=== PATIENT | male | born 1945 | race Caucasian/White ===

== ENCOUNTER 2016-08-06 16:21 | Emergency (ER) | payer MEDICARE ==
[2015-09-21 12:51] VITALS: BMI 28.2
[~2016-08-06 16:21] MED LIST: BAYER CHEWABLE81 MG PO; BUSPAR10 MG PO; CARAFATE1 G PO; CLARITIN 10 MG10 MG PO; CYMBALTA30 MG PO; DESERYL100 MG PO; EFFEXOR XR75 MG PO; FLOMAX0.4 MG PO; FLUNISOLIDE29 MCG NASAL; FLUTICASONE PRO16 GM NASAL; LANTUS INSULIN10 ML SC; MORPHINE SULFAT30 M4 PO; NEURONTIN 400400 MG PO; PHENERGAN25 M1 PO; PLAVIX75 MG PO; PROSCAR5 MG PO; PROTONIX40 MG PO; ZANAFLEX4 MG PO; ZOCOR80 MG PO
[2016-08-06 17:04] LABS: BASOPHILS 0.2 % (0.0-2.0); EOSINOPHILS 1.6 % (0-7); HEMATOCRIT 31.9 % (42.0-54.0); HEMOGLOBIN 10.8 g/dL (13.5-17.5); IMMATURE GRANULOCYTES 0.5 % (0-5); LYMPHOCYTES 23.9 % (15-50); MCH 30.4 pg (26.0-34.0); MCHC 33.9 g/dL (31.0-37.0); MCV 89.9 fL (80.0-100.0); MEAN PLATELET VOLUME 9.9 fL (7.4-10.4); NEUTROPHILS 62.8 % (40-80); RBC 3.55 10x6/uL (4.20-6.10); RDW 15.1 % (11.5-14.5); WBC 6.4 10x3/uL (4.8-10.8)
[2016-08-06 17:05] LABS: PLATELET COUNT 149 10x3/uL (130-400)
[2016-08-06 17:24] LABS: ALBUMIN 3.3 g/dL (3.4-5.0); ANION GAP 7.8 mmol/L (8-16); BILIRUBIN - TOTAL 0.55 mg/dL (0.2-1.3); CALCIUM 8.8 mg/dL (8.5-10.1); CARBON DIOXIDE 36.2 mmol/L (21.0-32.0); CREATININE - SERUM 1.6 mg/dL (0.6-1.3); PROTEIN - SERUM 7.3 g/dL (6.4-8.2)
[2016-08-06 17:36] LABS: THYROID STIMULATING HORMONE 1.23 uIU/mL (0.36-3.74); TROPONIN-I 0.02 ng/mL (0.000-0.060)
[2016-08-06 17:36] LABS: APPEARANCE CLEAR (CLEAR); BILIRUBIN NEGATIVE (NEGATIVE); COLOR YELLOW (YELLOW); GLUCOSE NEGATIVE (NEGATIVE); KETONE NEGATIVE (NEGATIVE); LEUKOCYTE ESTERASE TRACE (NEGATIVE); NITRITE NEGATIVE (NEGATIVE); PROTEIN NEGATIVE (NEGATIVE); SPECIFIC GRAVITY 1.005 (1.005-1.020); UROBILINOGEN NORMAL (NORMAL)
[2016-08-06 17:37] LABS: BACTERIA NONE SEEN /hpf (NONE SEEN); EPITHELIAL CELLS 0-5 /hpf (0-5); RED CELLS - URINE 0-5 /hpf (0-5); WHITE CELLS - URINE 0-5 /hpf (0-5)
== END 2016-08-06 20:27 | disposition home or self-care (01) ==
LOC: D.ER 16:21
PROVIDERS: Emergency Medicine
DX: R42 Dizziness and giddiness (principal); Z91.81 History of falling; S09.90XA Unspecified injury of head, initial encounter; W19.XXXA Unspecified fall, initial encounter; Y93.89 Activity, other specified; Y92.89 Other specified places as the place of occurrence of the external cause; S13.9XXA Sprain of joints and ligaments of unspecified parts of neck, initial encounter; E86.0 Dehydration; E87.6 Hypokalemia; R53.1 Weakness; G89.29 Other chronic pain; E11.9 Type 2 diabetes mellitus without complications; Z95.0 Presence of cardiac pacemaker; I10 Essential (primary) hypertension; I45.10 Unspecified right bundle-branch block

== ENCOUNTER → 2016-12-08 11:46 | Outpatient (CLI) | payer MEDICARE ==
[2015-09-21 12:51] VITALS: BMI 28.2
== END | disposition home or self-care (01) ==
LOC: D.CT 11:46
DX: R42 Dizziness and giddiness (principal)

== ENCOUNTER 2016-12-13 16:26 | Inpatient (IN) | payer MEDICARE ==
[~2016-12-13] VITALS: Ht 167.6 cm; Wt 81.1 kg
--- NOTE | ~2016-12-13 | HP ---
PATIENT: WASHINGTON HU MEDICAL RECORD: [id number] ACCOUNT: [id number] LOCATION:[address] : [birth year] ADMISSION DATE: 12/13/16 HISTORY AND PHYSICAL EXAMINATION CHIEF COMPLAINT: Dizziness. HISTORY OF PRESENT ILLNESS: An elderly [facility] patient of mine presented to clinic yesterday with complaint of dizziness and back pain. The patient states he is dizzy all the time, has been falling recently, very weak. He had some lab work drawn yesterday. It came back today and showed potassium of 2.4 with acute renal insufficiency, so he will be admitted for further workup. PAST MEDICAL HISTORY, SOCIAL HISTORY, SURGICAL HISTORY, FAMILY HISTORY: See paper chart. REVIEW OF SYSTEMS: CONSTITUTIONAL: No fever or chills. Positive for generalized weakness. HEENT: He does have some nasal congestion. RESPIRATORY: Positive for chronic cough and shortness of breath. CARDIOVASCULAR: No chest pain. ABDOMEN: No abdominal pain. No nausea, vomiting or diarrhea. GENITOURINARY: No dysuria. Does complain of polyuria. MUSCULOSKELETAL: Positive for back pain. NEUROLOGIC: Positive for dizziness. PHYSICAL EXAMINATION: GENERAL: No acute distress. HEENT: Normocephalic, atraumatic. NECK: Supple. LUNGS: Clear to auscultation bilaterally. CARDIOVASCULAR: Regular rate and rhythm. A III/ systolic ejection murmur. ABDOMEN: Soft, nontender to palpation. Bowel sounds positive. MUSCULOSKELETAL: Positive for back flexion and extension. EXTREMITIES: Trace edema. NEUROLOGIC: Awake, alert, oriented times 3. Cranial nerves II-XII grossly intact. ASSESSMENT: 1. Hypokalemia. 2. Acute kidney injury. 3. Sick sinus syndrome. 4. Insulin-dependent diabetes. 5. Dizziness. PLAN: We will admit the patient to the hospital, start on electrolyte protocol with fluid replacement. Check carotid Dopplers, may need pacemaker interrogated while in the hospital. Other orders written on chart. TRANSINT:[id number] Voice Confirmation ID: [id number] DOCUMENT ID: [id number] HISTORY AND PHYSICAL [id number] WASHINGTON HU HUNTER MD CC: [id number] DICTATION DATE: 12/13/161734 METEOROLOGIST IN CHARGE: 12/13/16 1828 ADM IN [id number] [place] [address]
--- NOTE | ~2016-12-13 | EC ---
PATIENT:WASHINGTON HU DATE OF SERVICE: 12/14/16 SEX: M MEDICAL RECORD: [id number] DATE OF : 47 LOCATION:D.M2 D.210 AGE OF PATIENT: 71 ADMISSION DATE: 12/14/16 REFERRING PHYSICIAN: INTERPRETING PHYSICIAN: KIMBERLY ESTEVES M.D. ECHOCARDIOGRAM REPORT ECHO CHARGES 4 ECHO COMPLETE CLINICAL DIAGNOSIS: NEAR SYNCOPE HX HTN/DM ECHOCARDIOGRAPHIC MEASUREMENTS (adult normal given) AC root (d.<3.7cm) 3.3 LV Septum d (<1.2 cm> 1.4 Valve Excursion 1.5 LV Septum (systole) 1.7 Left Atria (s.<4.0cm> 4.2 LVPW d(<1.2cm) 1.3 RV (d.<2.3cm) 3.4 LVPW (sytole) 1.9 LV diastole(<5.6CM) 5.2 MV E-F(>70mm/sec) LV systole 3.1 LVOT Diameter 1.7 MV exc.(>10mm) 1.3 Est.ejection fraction (50-75%) Pericardial Effusion N DOPPLER: LVIT A 85.0 E 107 LA RVSP 66 LVOT 114 AOP1/2T Asc. Ao 135 RVOT 87 RA PA 105 AV Gradient Peak 7.25 AV Mean 3.20 AV Area 1.6 MV Gradient Peak 5.72 MV Mean 2.50 MV Area COMMENTS: Lead Network Architect: Vaughn RAI Dust Operator:2 Dr. Esteves TAPE# PACS DATE OF SERVICE: 12/14/2016 INDICATION: Near syncope. REFERRING PHYSICIAN: Sidney Wang MD. DESCRIPTION: Left ventricle demonstrates left ventricular hypertrophy. No wall motion abnormalities are noted. Estimated ejection fraction is 65%. Mitral valve is structurally normal. There is mild regurgitation seen. Left atrium is mildly dilated. The aortic valve is trileaflet. There is mild insufficiency ECHOCARDIOGRAM REPORT [id number] WASHINGTON HU seen, but no evidence of stenosis. Right ventricle is mildly dilated. Tricuspid valve is normal. There is moderate regurgitation noted. Right ventricular systolic pressure is elevated at 66 mmHg. There is no pericardial effusion noted. IMPRESSION: 1. Left ventricular hypertrophy with preserved ejection fraction of 55%. 2. Mild mitral regurgitation. 3. Mild aortic insufficiency. 4. Moderate tricuspid regurgitation with elevated pulmonary pressures. TRANSINT:[id number] Voice Confirmation ID: [id number] DOCUMENT ID: [id number] KIMBERLY ESTEVES M.D. CC: [id number] DICTATION DATE: 12/15/16 0758 HVAC TECH: 12/15/16 1522 ADM IN [facility] [address] [id number]
[2016-12-13 17:56] LABS: BASOPHILS 0.2 % (0-2); EOSINOPHILS 1.8 % (0-7); HEMATOCRIT 33.5 % (42.0-54.0); HEMOGLOBIN 11.3 g/dL (13.5-17.5); LYMPHOCYTES 19.7 % (15-50); MCH 31.9 pg (26.0-34.0); MCHC 33.7 g/dL (31.0-37.0); MCV 94.6 fL (80.0-100.0); MEAN PLATELET VOLUME 9.3 fL (7.4-10.4); MONOCYTES 15.3 % (2-11); PLATELET COUNT 169 10x3/uL (130-400); RBC 3.54 10x6/uL (4.20-6.10); RDW 13.7 % (11.5-14.5); WBC 5.4 10x3/uL (4.8-10.8)
[2016-12-13 18:03] VITALS: BP 181/82; BMI 27.8
[2016-12-13 18:24] LABS: ALBUMIN 3.3 g/dL (3.4-5.0); ANION GAP 6.9 mmol/L (8-16); BILIRUBIN - TOTAL 0.71 mg/dL (0.2-1.3); CALCIUM 8.9 mg/dL (8.5-10.1); CARBON DIOXIDE 38.5 mmol/L (21.0-32.0); CREATININE - SERUM 1.5 mg/dL (0.6-1.3); PROTEIN - SERUM 8.2 g/dL (6.4-8.2)
[2016-12-13 18:41] LABS: POTASSIUM - SERUM 2.4 mmol/L (3.5-5.1)
--- NOTE | 2016-12-13 21:31 | NUR ---
PT AWAKE, ALERT, ORIENTED, STATED HE FELL THIS AM AND WILL CALL WITH NEEDING ANY ASSISTANCE. PTS FSBS IS 408 THIS EVENING. WILL HAVE LAB DRAW A SERUM GLUCOSE AND CALL PHYSICIAN FOR FURTHER ORDERS. PT STATES HE GLUCOSE HAS NEVER BEEN THIS HIGH AND HE ONLY TAKES LANTUS. WILL ADMINISTER THE 20UNITS OF LANTUS AND WAIT FOR FURTHER ORDERS. CONTINUE TO MONITOR PT CLOSELY.
--- NOTE | 2016-12-14 03:34 | NUR ---
PT CALLED C/O NASAL DRYNESS, REQUESTING HIS NOSE SPRAY. UPON FURTHER INVESTIGATION, THERE IS NO NASAL SPRAY ORDERED FOR PT. WHEN ASKED IF PT TAKES NASAL SPRAY, HE STATED THAT HE HAS AN RX FROM THE SD THAT HE TAKES AND NEEDS IT NOW. I EXPLAINED TO PT THAT WE HAVE TO HAVE A PHYSICIAN ORDER IT, AND THAT IT WOULD BE DONE UPON THEIR APPROVAL IN THE A.M. DURING THEIR ROUNDS. PT DENIED ANY OTHER NEEDS. CONTINUE TO MONITOR CLOSELY.
[2016-12-14 05:12] LABS: BASOPHILS 0.4 % (0-2); EOSINOPHILS 1.7 % (0-7); HEMATOCRIT 30.3 % (42.0-54.0); HEMOGLOBIN 10.3 g/dL (13.5-17.5); IMMATURE GRANULOCYTES 0.2 % (0-5); LYMPHOCYTES 40.2 % (15-50); MCH 32.1 pg (26.0-34.0); MCV 94.4 fL (80.0-100.0); MEAN PLATELET VOLUME 9.5 fL (7.4-10.4); MONOCYTES 14.4 % (2-11); NEUTROPHILS 43.1 % (40-80); PLATELET COUNT 160 10x3/uL (130-400); RBC 3.21 10x6/uL (4.20-6.10); RDW 13.7 % (11.5-14.5); WBC 4.7 10x3/uL (4.8-10.8)
[2016-12-14 05:38] LABS: ALBUMIN 2.8 g/dL (3.4-5.0); BILIRUBIN - TOTAL 0.66 mg/dL (0.2-1.3); CALCIUM 8.5 mg/dL (8.5-10.1); CARBON DIOXIDE 37.1 mmol/L (21.0-32.0); CREATININE - SERUM 1.4 mg/dL (0.6-1.3)
[2016-12-14 05:47] LABS: ANION GAP 8.3 mmol/L (8-16); POTASSIUM - SERUM 2.4 mmol/L (3.5-5.1)
[2016-12-14 07:00] VITALS: BP 144/60
[2016-12-14 07:17] LABS: APPEARANCE CLEAR (CLEAR); BILIRUBIN NEGATIVE (NEGATIVE); COLOR YELLOW (YELLOW); GLUCOSE NEGATIVE (NEGATIVE); KETONE NEGATIVE (NEGATIVE); LEUKOCYTE ESTERASE TRACE (NEGATIVE); NITRITE NEGATIVE (NEGATIVE); PROTEIN NEGATIVE (NEGATIVE); RED CELLS - URINE 0-5 /hpf (0-5); UROBILINOGEN NORMAL (NORMAL); WHITE CELLS - URINE OCC /hpf (0-5)
[2016-12-14 07:18] LABS: BACTERIA FEW /hpf (NONE SEEN); MUCUS <1+ /lpf (NONE SEEN)
--- NOTE | 2016-12-14 07:45 | NUR ---
AM ROUNDS - PT IS IN BED AND AWAKE. C/O PAIN IN BUTTOCK, 02/15. IV TO LEFT AC, NS WITH 20K+ AT 75CC/HR. PT HAS NO NEEDS AT THIS TIME. WILL CONTINUE TO MONITOR.
[2016-12-14 11:00] VITALS: BP 130/860
[2016-12-14 12:34] VITALS: Ht 167.6 cm; Wt 81.1 kg
--- NOTE | 2016-12-14 14:47 | NUR ---
SCDS TO BLE PLACE ON
[2016-12-14 16:17] VITALS: BP 100/67
[2016-12-14 17:24] LABS: MAGNESIUM - SERUM 1.9 mg/dL (1.8-2.4)
[2016-12-14 17:26] LABS: POTASSIUM - SERUM 3.6 mmol/L (3.5-5.1)
--- NOTE | 2016-12-14 18:29 | NUR ---
PT IS IN BED AWAKE AND ALERT. IV TO LEFT AC, NS WITH 20K AT 75CC/HR. NO NEEDS AT THIS TIME. WILL CONTINUE TO MONITOR
[2016-12-14 20:00] VITALS: BP 145/58
--- NOTE | 2016-12-14 20:02 | NUR ---
PT SITTING UP IN CHAIR, AWAKE, ALERT, ORIENTED, DENIES ANY NEEDS. CONTINUE TO MONITOR CLOSELY.
--- NOTE | 2016-12-15 00:44 | NUR ---
PT AWAKE, ALERT, ORIENTED, DENIES ANY NEEDS. CONTINUE TO MONITOR CLOSELY. PT IS NOW NPO SINCE MIDNIGHT FOR UPCOMING PROCEDURE.
[2016-12-15 04:00] VITALS: BP 166/77
--- NOTE | 2016-12-15 04:08 | NUR ---
PT WOKE UP REQUESTING HIS MORPHINE, STATING THAT HE DID NOT RECEIVE IT THIS SHIFT. I REMINDED PT THAT I DID INDEED GIVE HIM HIS MORPHINE, AND ACTUALLY PLACED IT IN HIS MOUTH FOR ADMINISTRATION. HE ARGUED WITH ME THAT HE DID NOT RECEIVE IT, AND IS DEMANDING THAT I GIVE IT TO HIM NOW. I EXPLAINED TO PT THAT HE WAS SLEEPING WHEN I CAME IN TO ADMINISTER THE 22:00 SCHEDULED DOSE OF MS CONTIN, THAT I PLACED THE MEDICINE CUP WITH THE 1 30MG MS CONTIN IN IT TO HIS LIPS, TURNING IT OVER INTO HIS MOUTH. I ALSO ASSISTED PT WITH A DRINK OF WATER SO THAT HE COULD SWALLOW HIS PILL. I EXPLAINED THAT HIS MS CONTIN IS SCHEDULED EVERY 8 HOURS AND THAT I CANNOT GIVE HIM ANOTHER ONE UNTIL 06:00 BUT THAT HE CAN HAVE A TYLENOL. HE THEN ARGUED WITH ME ABOUT TYLENOL, STATING HE CANNOT TAKE ASPIRIN. I TOLD HIM TYLENOL WAS NOT ASPIRIN, THAT IT WAS ACETOMINPHEN. PT THEN ASKED FOR IBUPROFEN, IN WHICH I TOLD HIM AGAIN THAT HE CAN HAVE A TYLENOL. I TOLD PT THAT I DID NOT APPRECIATE BEING ACCUSED OF NOT GIVING HIM HIS MORPHINE, AND THAT FROM THIS POINT FORWARD, I WILL MAKE SURE PT IS COMPLETELY AWAKE BEFORE DOING SO.
[2016-12-15 06:00] LABS: BASOPHILS 0.2 % (0-2); EOSINOPHILS 1.7 % (0-7); HEMATOCRIT 29.3 % (42.0-54.0); HEMOGLOBIN 9.7 g/dL (13.5-17.5); IMMATURE GRANULOCYTES 0.2 % (0-5); LYMPHOCYTES 34.8 % (15-50); MCH 31.8 pg (26.0-34.0); MCHC 33.1 g/dL (31.0-37.0); MCV 96.1 fL (80.0-100.0); MEAN PLATELET VOLUME 9.7 fL (7.4-10.4); MONOCYTES 15.7 % (2-11); NEUTROPHILS 47.4 % (40-80); PLATELET COUNT 147 10x3/uL (130-400); RBC 3.05 10x6/uL (4.20-6.10); RDW 13.9 % (11.5-14.5); WBC 4.1 10x3/uL (4.8-10.8)
--- NOTE | 2016-12-15 06:11 | NUR ---
UPON ADMINISTERING PTS 06:00 MEDS THIS A.M., I MADE SURE THAT PT WAS FULLY AWAKE, ALERT, AND ORIENTED. I ASKED PT IF HE WOULD REMEMBER ME GIVING HIM HIS SCHEDULED MS CONTIN THIS AM AND HE STATED "YES" THAT HE WILL REMEMBER TAKING IT THIS AM. ALSO GAVE PT HIS PRN ZANAFLEX. PT STATES HIS BACK/BUTTOCK PAIN IS INTRACTABLE AT THIS TIME AND HE IS NOT GETTING RELIEF FROM HIS SCHEDULED PAIN MEDICATION. CONTINUE TO MONITOR.
[2016-12-15 06:53] LABS: ANION GAP 10.3 mmol/L (8-16); CALCIUM 8.3 mg/dL (8.5-10.1); CARBON DIOXIDE 30.3 mmol/L (21.0-32.0); CREATININE - SERUM 1.3 mg/dL (0.6-1.3); MAGNESIUM - SERUM 1.9 mg/dL (1.8-2.4); POTASSIUM - SERUM 3.6 mmol/L (3.5-5.1)
--- NOTE | 2016-12-15 07:31 | NUR ---
AM ROUNDS - PT APPEARS TO BE SLEEPING WITH EQUAL AND NON LABORED BREATHING, IN BED. IV TO LEFT AC, NS WITH 20K+ @ 75CC/HR. SIDE RAILS UP X2. BED AT LOWEST POSITION. URINAL AND CANE AT BEDSIDE. CALL PEDRAZA IN REACH. SCDS ARE CURRENTLY OFF. PT IS NPO AT THIS TIME FOR A PROCEDURE TODAY. PT IS ON RA. MONITOR SHOWING PACE, HR 67. WILL CONTINUE TO MONITOR
[2016-12-15 08:00] VITALS: BP 101/56
[2016-12-15 12:00] VITALS: BP 143/76
--- NOTE | 2016-12-15 12:15 | NUR ---
PT RETURNED FROM PROCEDURE
[2016-12-15 16:00] VITALS: BP 186/72
--- NOTE | 2016-12-15 18:17 | NUR ---
PT IN BED RESTING WITH AT BEDSIDE. NO NEEDS AT THIS TIME. WILL CONTINUE TO MONITOR
--- NOTE | 2016-12-15 20:10 | NUR ---
PT AWAKE AND ALERT, SIT UP IN BED AND WATCH TV.
[2016-12-16] VITALS (7 sets, daily range): BP systolic 110–156; BP diastolic 58–72
--- NOTE | 2016-12-16 01:07 | NUR ---
PT REST QUIETLY IN BED WITH EYE CLOSE, BED LOW, CALL LIGHT WITHIN REACH.
--- NOTE | 2016-12-16 06:05 | NUR ---
PT LYING IN BED, EYES CLOSED, RESPIRATIONS EVEN AND UNLABORED. CONTINUE TO MONITOR CLOSELY.
[2016-12-16 08:48] LABS: BASOPHILS 0.2 % (0-2); EOSINOPHILS 2.9 % (0-7); HEMATOCRIT 31.4 % (42.0-54.0); HEMOGLOBIN 10.2 g/dL (13.5-17.5); IMMATURE GRANULOCYTES 0.2 % (0-5); LYMPHOCYTES 30.7 % (15-50); MCH 31.9 pg (26.0-34.0); MCHC 32.5 g/dL (31.0-37.0); MEAN PLATELET VOLUME 9.6 fL (7.4-10.4); MONOCYTES 9.2 % (2-11); NEUTROPHILS 56.8 % (40-80); PLATELET COUNT 164 10x3/uL (130-400); RDW 14.4 % (11.5-14.5)
[2016-12-16 08:54] LABS: MCV 98.1 fL (80.0-100.0); WBC 6.1 10x3/uL (4.8-10.8)
[2016-12-16 08:55] LABS: ANION GAP 8.9 mmol/L (8-16); CALCIUM 8.5 mg/dL (8.5-10.1); CARBON DIOXIDE 30.5 mmol/L (21.0-32.0); CREATININE - SERUM 1.3 mg/dL (0.6-1.3); MAGNESIUM - SERUM 1.6 mg/dL (1.8-2.4)
[2016-12-16 08:56] LABS: POTASSIUM - SERUM 4.4 mmol/L (3.5-5.1)
--- NOTE | 2016-12-16 09:10 | NUR ---
AWAKE AND ALERT. ORIENTED X3. NO C/O AT THIS TIME. LUNGS ARE CLEAR BILATERALLY, NO COUGH NOTED. SKIN IS INTACT WITHOUT REDNESS. IV TO RIGHT WRIST PATENT WITHOUT REDNESS AT INSERTION SITE. ATE MOST OF BREAKFAST. DENIES NEEDS. ASSISTED TO BED PER STAFF.
--- NOTE | 2016-12-16 10:00 | CN ---
PATIENT NAME:WASHINGTON HU MEDICAL RECORD: [id number] : 47 LOCATION:D.M2 D.2107 ADMIT DATE: 12/14/16 ACCOUNT: [id number] CONSULTING PHYSICIAN: SAL BENITEZ MD REFERRING PHYSICIAN: AXEL ELIZABETH MD DATE OF CONSULTATION: 12/14/2016 HISTORY OF PRESENT ILLNESS: A 71-year-old gentleman with a history of sick sinus syndrome, status post pacemaker placement, [place], has a history of diabetes mellitus, hypertension, hyperlipidemia, admitted with syncope; however, noted to be hypokalemic. He reports some weakness, occasional syncope with urination, he feels like his legs are going out, has moderate stenosis via carotid Doppler. Echocardiographic study is pending. We are asked to see her concerning her cardiovascular status. PAST MEDICAL HISTORY: Includes: 1. History of hypertension. 2. Diabetes mellitus. 3. Dyslipidemia. 4. Chronic pain syndrome. 5. Gastroesophageal reflux disease. 6. BPH. HOME MEDICATIONS: Include Proscar 5 mg p.o. daily, insulin, Carafate 1 g a.c. and q.h.s., Protonix 40 mg q.h.s., BuSpar 10 mg p.o. t.i.d., trazodone ____ mg p.o. q.h.s., Effexor 75 mg daily, morphine 30 mg t.i.d., Neurontin 400 mg t.i.d., Cymbalta 30 mg p.o. daily, aspirin 81 mg daily, simvastatin 80 mg q.h.s., Plavix 75 mg daily, Zanaflex 4 mg q.6 hours p.r.n., Phenergan as needed. SOCIAL HISTORY: She is a nonsmoker, lives here in [place]. No set of exercise program. He is able to take care of his ADLs. REVIEW OF SYSTEMS: The patient reports easy bruising but reports no swollen glands. The patient reports no fever, no night sweats, no significant weight gain, no significant weight loss. No significant exercise tolerance. The patient reports no dry eyes, no irritation, no vision change. Patient reports no difficulty hearing and no ear pain. Patient reports no frequent nose bleeds or nose and sinus problems. Patient reports on arm pain on exertion. No shortness of breath while lying down. No history of heart murmur. Patient reports no cough, no wheezing or coughing up blood. Patient reports no abdominal pain, no vomiting. Normal appetite. No diarrhea and not vomiting blood. No nausea and no constipation. Patient reports no incontinence. No difficulty urinating. No hematuria. No increased frequency. Patient reports no muscle aches. No weakness, no arthralgias, no back pain. No swelling of the extremities. Patient reports no abnormal mole, no jaundice, no rashes. Reports no loss of consciousness. No weakness and no numbness. No seizures, dizziness, or headaches. The patient reports no depression, no sleep disturbance, feeling safe in a relationship and no alcohol abuse. Patient reports on fatigue. Reports no runny nose or sinus pressure. No itching, no hives, and no frequent sneezing. ALLERGIES: NEOSPORIN. PHYSICAL EXAMINATION: GENERAL: Pleasant gentleman in no acute distress, appears stated age. CONSULT REPORT [id number] WASHINGTON HU VITAL SIGNS: Blood pressure 181/82. Pulse 65 and regular. HEENT: Normocephalic and atraumatic. NECK: No JVD or bruit. HEART: Regular, soft, I-II/ systolic ejection murmur. LUNGS: Good air excursion. ABDOMEN: Soft and nontender. EXTREMITIES: Pulses 2+ with no edema. NEUROLOGICAL: Grossly intact. IMPRESSION: Syncope, near syncope, multifactorial, may be a component of autonomic insufficiency with longstanding diabetes. Pacemaker was interrogated with excellent threshold sensing, no arrhythmias noted on heart rate histograms, I agree with other workup. Thank you for the consultation. No contraindication at discharge from a cardiovascular standpoint. TRANSINT:[id number] Voice Confirmation ID: [id number] DOCUMENT ID: [id number] SAL BENITEZ MD at 1000 CC: [id number] DICTATION DATE: 12/14/16 1451 DUMPCART DRIVER: 12/15/16 0114 ADM IN [place] [id number] [place] [address]
--- NOTE | 2016-12-16 11:30 | NUR ---
fsbs 184. GIVEN 2 UNITS HUMALOG SUBQ PER SS. PATIENT IS NPO AT THIS TIME FOR TEST. /FAMILY IN ROOM.
--- NOTE | 2016-12-16 13:14 | NUR ---
RESTING QUIETLY IN BED. WAITING ANXIOUSLY FOR TEST TO BE OVER SO HE CAN EAT AND DRINK.
--- NOTE | 2016-12-16 14:00 | NUR ---
OFF UNIT VIA FOR TESTS.
--- NOTE | 2016-12-16 15:15 | NUR ---
RETURNED FROM PROCEDURE. REQUESTED AND GIVEN ZANAFLEX FOR MUSCLE CRAMPS. WILL MONITOR.
--- NOTE | 2016-12-16 17:00 | NUR ---
FSBS 180. GIVEN 2 UNITS HUMALOG SUBQ PER SS. SUPPER SERVED IN ROOM. ASSISTED TO CHAIR AT BEDSIDE TO EAT. NO CHANGES NOTED DENIES NEEDS.
--- NOTE | 2016-12-16 18:05 | NUR ---
GIVING SELF BATH WHILE UP IN CHAIR. DENIES NEEDS. NO CHANGES NOTED.
--- NOTE | 2016-12-16 20:15 | NUR ---
REC'D IN BED WITH EYES CLOSED EASILY TO AROUSED WHEN NAME IS CALLED. RESP EVEN AND UNLABORED WITH NO DISTRESS NOTED. CAN EXPRESS NEEDS AND WANTS. C/O BACK AND LEG PAIN RATING 10/10 ON PAIN SCALE. WILL CONINTUE TO OBSERVE FOR NEEDS. C/L IN REACH AT BEDSIDE.
[2016-12-17] VITALS: BP 157/69
[2016-12-17 04:00] VITALS: BP 160/57
--- NOTE | 2016-12-17 04:14 | NUR ---
RESTING WITH NO DISTRESS. CPOC.
--- NOTE | 2016-12-17 05:16 | NUR ---
SALINE LOCK WAS DISCONTINUE TO LEFT WRIST PER PT REQUEST. PT STATED THAT " EITHER YOU MOVE IT OR I WILL. THIS IS SORE AND HURTING ME.
[2016-12-17 05:19] LABS: BASOPHILS 0.2 % (0-2); EOSINOPHILS 3.3 % (0-7); HEMATOCRIT 30.9 % (42.0-54.0); HEMOGLOBIN 10.3 g/dL (13.5-17.5); IMMATURE GRANULOCYTES 0.2 % (0-5); LYMPHOCYTES 34.5 % (15-50); MCH 32.4 pg (26.0-34.0); MCHC 33.3 g/dL (31.0-37.0); MCV 97.2 fL (80.0-100.0); MEAN PLATELET VOLUME 9.9 fL (7.4-10.4); MONOCYTES 10.4 % (2-11); NEUTROPHILS 51.4 % (40-80); PLATELET COUNT 158 10x3/uL (130-400); RBC 3.18 10x6/uL (4.20-6.10); RDW 14.2 % (11.5-14.5); WBC 5.1 10x3/uL (4.8-10.8)
[2016-12-17 05:29] LABS: CALCIUM 8.5 mg/dL (8.5-10.1); CARBON DIOXIDE 29.7 mmol/L (21.0-32.0); CREATININE - SERUM 1.3 mg/dL (0.6-1.3); MAGNESIUM - SERUM 1.8 mg/dL (1.8-2.4); POTASSIUM - SERUM 4.7 mmol/L (3.5-5.1)
[2016-12-17 07:00] VITALS: BP 186/90
[2016-12-17 08:00] VITALS: BP 143/78; BP 168/82; BP 186/90
--- NOTE | 2016-12-17 10:11 | NUR ---
ALERT AND ORIENTED X4. SITTING UP IN CHAIR. DENIES PAIN OR SOB. ORTHOSTATIC BP COMPLETE. LYING BP-168/82, P-73. SITTING BP-186/90, P-73. STANDING BP-143/78, P-74. DENIES ANY NEEDS. SINUS RHTHYM WITH PACED BEATS ON TELEMETRY. CONTINUE PLAN OF CARE AND SAFETY PRECAUTIONS.
[2016-12-17 11:37] VITALS: BP 143/78
--- NOTE | 2016-12-17 16:15 | NUR ---
ALERT AND ORIENTED X4. DISCHARGE INSTRUCTIONS GIVEN VERBALLY AND WRITTEN. NO NEW MEDICATIONS. SISTER AT BEDSIDE TO DRIVE HOME. DISCHARGE PAPERS SIGNED ON CHART. DC RT FA IV TIP INTACT. ESCORT TO CAR VIA WHEELCHAIR. REMAINS FREE FROM INJURY.
== END 2016-12-17 16:17 | disposition home or self-care (01) | DRG 74 ==
LOC: D.M2 16:26 → OBSVTIME 16:27 → D.M2 12-14 11:57
PROVIDERS: Family Medicine; ADMIT Family Medicine
DX: E11.43 Type 2 diabetes mellitus with diabetic autonomic (poly)neuropathy (principal); N17.9 Acute kidney failure, unspecified; I65.23 Occlusion and stenosis of bilateral carotid arteries; E87.6 Hypokalemia; E78.5 Hyperlipidemia, unspecified; E11.22 Type 2 diabetes mellitus with diabetic chronic kidney disease; I12.9 Hypertensive chronic kidney disease with stage 1 through stage 4 chronic kidney disease, or unspecified chronic kidney disease; N18.3 Chronic kidney disease, stage 3 (moderate); N40.0 Benign prostatic hyperplasia without lower urinary tract symptoms; J44.9 Chronic obstructive pulmonary disease, unspecified; E11.42 Type 2 diabetes mellitus with diabetic polyneuropathy; Z79.4 Long term (current) use of insulin; K31.84 Gastroparesis; I95.9 Hypotension, unspecified; K21.9 Gastro-esophageal reflux disease without esophagitis; Z95.0 Presence of cardiac pacemaker; Z72.0 Tobacco use

== ENCOUNTER 2017-01-05 20:07 | Emergency (ER) | payer MEDICARE ==
[2016-12-14 12:34] VITALS: BMI 27.7
[2017-01-05 21:44] LABS: BASOPHILS 0.1 % (0-2); HEMATOCRIT 32.4 % (42.0-54.0); IMMATURE GRANULOCYTES 0.4 % (0-5); LYMPHOCYTES 28.1 % (15-50); MCH 31.8 pg (26.0-34.0); MCV 93.6 fL (80.0-100.0); MEAN PLATELET VOLUME 10.4 fL (7.4-10.4); NEUTROPHILS 61.4 % (40-80); PLATELET COUNT 176 10x3/uL (130-400); RBC 3.46 10x6/uL (4.20-6.10); RDW 13.9 % (11.5-14.5); WBC 6.8 10x3/uL (4.8-10.8)
[2017-01-05 22:00] LABS: ALBUMIN 3.2 g/dL (3.4-5.0); ANION GAP 9.6 mmol/L (8-16); BILIRUBIN - TOTAL 0.28 mg/dL (0.2-1.3); CALCIUM 8.7 mg/dL (8.5-10.1); CARBON DIOXIDE 35.4 mmol/L (21.0-32.0); CREATININE - SERUM 1.5 mg/dL (0.6-1.3); PROTEIN - SERUM 7.9 g/dL (6.4-8.2)
== END 2017-01-05 22:21 | disposition home or self-care (01) ==
LOC: D.ER 20:07
PROVIDERS: Emergency Medicine
DX: E87.6 Hypokalemia (principal); R11.2 Nausea with vomiting, unspecified; E11.9 Type 2 diabetes mellitus without complications; Z79.4 Long term (current) use of insulin; N18.9 Chronic kidney disease, unspecified

== ENCOUNTER 2017-05-02 18:41 | Emergency (ER) | payer MEDICARE ==
[2016-12-14 12:34] VITALS: BMI 27.7
[2017-05-02 19:23] LABS: BASOPHILS 0.2 % (0-2); EOSINOPHILS 0.7 % (0-7); HEMATOCRIT 35.4 % (42.0-54.0); HEMOGLOBIN 12.4 g/dL (13.5-17.5); IMMATURE GRANULOCYTES 0.4 % (0-5); LYMPHOCYTES 13.9 % (15-50); MCH 32.1 pg (26.0-34.0); MCV 91.7 fL (80.0-100.0); MEAN PLATELET VOLUME 9.7 fL (7.4-10.4); NEUTROPHILS 76.8 % (40-80); PLATELET COUNT 197 10x3/uL (130-400); RBC 3.86 10x6/uL (4.20-6.10); WBC 9.1 10x3/uL (4.8-10.8)
[2017-05-02 19:29] LABS: APPEARANCE CLEAR (CLEAR); BILIRUBIN NEGATIVE (NEGATIVE); COLOR YELLOW (YELLOW); GLUCOSE 250 mg/dL (NEGATIVE); KETONE NEGATIVE (NEGATIVE); NITRITE NEGATIVE (NEGATIVE); PROTEIN NEGATIVE (NEGATIVE); UROBILINOGEN NORMAL (NORMAL)
[2017-05-02 19:48] LABS: ALBUMIN 3.5 g/dL (3.4-5.0); ANION GAP 10.8 mmol/L (8-16); BILIRUBIN - TOTAL 0.2 mg/dL (0.2-1.3); CALCIUM 8.9 mg/dL (8.5-10.1); CARBON DIOXIDE 31.2 mmol/L (21.0-32.0); CREATININE - SERUM 1.9 mg/dL (0.6-1.3); PROTEIN - SERUM 8.1 g/dL (6.4-8.2)
== END 2017-05-02 21:20 | disposition home or self-care (01) ==
LOC: D.ER 18:41
PROVIDERS: Emergency Medicine
DX: F39 Unspecified mood [affective] disorder (principal); E11.65 Type 2 diabetes mellitus with hyperglycemia; Z79.4 Long term (current) use of insulin; N28.9 Disorder of kidney and ureter, unspecified

== ENCOUNTER 2017-06-22 17:20 | Observation (INO) | payer MEDICARE ==
[~2017-06-22] VITALS: Ht 167.6 cm; Wt 72.6 kg
[2017-06-22 17:53] LABS: APPEARANCE CLEAR (CLEAR); BILIRUBIN NEGATIVE (NEGATIVE); COLOR YELLOW (YELLOW); GLUCOSE NEGATIVE (NEGATIVE); KETONE NEGATIVE (NEGATIVE); NITRITE NEGATIVE (NEGATIVE); PROTEIN NEGATIVE (NEGATIVE); UROBILINOGEN NORMAL (NORMAL)
[2017-06-22 17:54] LABS: BACTERIA FEW /hpf (NONE SEEN); RED CELLS - URINE 0-5 /hpf (0-5); WHITE CELLS - URINE OCC /hpf (0-5)
[2017-06-22 18:08] LABS: BASOPHILS 0.2 % (0-2); EOSINOPHILS 0.7 % (0-7); HEMATOCRIT 33.9 % (42.0-54.0); HEMOGLOBIN 11.9 g/dL (13.5-17.5); IMMATURE GRANULOCYTES 0.2 % (0-5); MCH 31.5 pg (26.0-34.0); MCHC 35.1 g/dL (31.0-37.0); MCV 89.7 fL (80.0-100.0); MEAN PLATELET VOLUME 9.3 fL (7.4-10.4); MONOCYTES 6.8 % (2-11); NEUTROPHILS 71.1 % (40-80); PLATELET COUNT 195 10x3/uL (130-400); RBC 3.78 10x6/uL (4.20-6.10); RDW 12.7 % (11.5-14.5); WBC 5.4 10x3/uL (4.8-10.8)
[2017-06-22 18:25] LABS: ALBUMIN 3.3 g/dL (3.4-5.0); ANION GAP 9.5 mmol/L (8-16); BILIRUBIN - TOTAL 0.27 mg/dL (0.2-1.3); CALCIUM 8.7 mg/dL (8.5-10.1); CARBON DIOXIDE 32.4 mmol/L (21.0-32.0); CREATININE - SERUM 1.9 mg/dL (0.6-1.3); PROTEIN - SERUM 7.9 g/dL (6.4-8.2)
[2017-06-22 18:52] LABS: POTASSIUM - SERUM 2.9 mmol/L (3.5-5.1)
[2017-06-22 23:30] VITALS: BP 167/71
[2017-06-22 23:35] VITALS: BP 186/82; BMI 25.8
[2017-06-23 03:30] VITALS: BP 178/82
[2017-06-23 04:40] LABS: BASOPHILS 0.3 % (0-2); EOSINOPHILS 0.6 % (0-7); HEMATOCRIT 31.7 % (42.0-54.0); HEMOGLOBIN 11.3 g/dL (13.5-17.5); IMMATURE GRANULOCYTES 0.1 % (0-5); LYMPHOCYTES 23.8 % (15-50); MCH 31.6 pg (26.0-34.0); MCHC 35.6 g/dL (31.0-37.0); MCV 88.5 fL (80.0-100.0); MEAN PLATELET VOLUME 9.5 fL (7.4-10.4); MONOCYTES 8.9 % (2-11); NEUTROPHILS 66.3 % (40-80); PLATELET COUNT 190 10x3/uL (130-400); RBC 3.58 10x6/uL (4.20-6.10); RDW 12.7 % (11.5-14.5)
[2017-06-23 04:42] LABS: WBC 7.3 10x3/uL (4.8-10.8)
[2017-06-23 04:56] LABS: ANION GAP 10.2 mmol/L (8-16); CALCIUM 8.5 mg/dL (8.5-10.1); CARBON DIOXIDE 29.3 mmol/L (21.0-32.0); CREATININE - SERUM 1.6 mg/dL (0.6-1.3)
[2017-06-23 05:07] LABS: POTASSIUM - SERUM 3.5 mmol/L (3.5-5.1)
--- NOTE | 2017-06-23 07:00 | NUR ---
PT REC'D FROM [facility]. RESTING IN BED WATCHING TV. AAOX4. RATING CURRENT PAIN IN BACK 04/17. WILL REASSESS. PIV TO R HAND FREE OF REDNESS AND SWELLING. REGULAR HEART RATE AND RHYTHM. LUNG SOUNDS CLEAR AND EQUAL BILAT. BOWEL SOUNDS ACTIVE X4 QAUDS. STATED HE HAD A BM THIS AM. +2 PEDAL PULSES BILAT. BED LOW, CALL LIGHT IN REACH, DENIES NEEDS. CPOC.
[2017-06-23 07:34] VITALS: BP 174/73
[2017-06-23] MEDS ORDERED: METOPROLOL TART50 MG PO (10:59)
[2017-06-23] MEDS ORDERED: STOOL SOFTENER250 MG PO (11:00)
--- NOTE | 2017-06-23 11:00 | NUR ---
SISTER OF PT PROVIDED MEDS. ENTERED INTO COMPUTER AND INSTRUCTED SISTER TO PLEASE RETURN MEDS TO CAR. PT STATED HE WENT AHEAD AND TOOK HIS MORNING MEDS INCLUDING HIS MORPHINE. TOLD PT I WOULD NOT BE ABLE TO GIVE HIM ANYTHING FOR FOUR HOURS. STATES HE UNDERSTANDS. BED LOW, CALL LIGHT IN REACH, DENIES NEEDS. CPOC.
[2017-06-23] MEDS ORDERED: HYDROCHLOROTHIA50 MG PO (11:02)
[2017-06-23] MEDS ORDERED: FLORINEF 0.1 M0.1 MG PO (11:04)
[2017-06-23] MEDS ORDERED: POTASSIUM CHLO10 ME1 PO (11:05)
[2017-06-23 11:47] VITALS: Ht 167.6 cm; Wt 72.6 kg
--- NOTE | 2017-06-23 14:06 | NUR ---
DISCHARGE INSTRUCTIONS REVIEWED AT THIS TIME. NO QUESTIONS OR CONCERNS VOICED. PIV TO R HAND DC'D WITH CATHETER INTACT. PRESSURE AND DRESSING APPLIED. ESCORTED OUT VIA WC.
== END 2017-06-23 14:06 | disposition home or self-care (01) ==
LOC: D.ER 17:20 → D.MS 21:11 → OBSVTIME 21:11 → D.MS 06-23 14:06
PROVIDERS: Emergency Medicine; ADMIT Family Medicine
DX: E86.0 Dehydration (principal); R11.2 Nausea with vomiting, unspecified; R19.7 Diarrhea, unspecified; E87.6 Hypokalemia; E11.9 Type 2 diabetes mellitus without complications; Z79.4 Long term (current) use of insulin; N18.3 Chronic kidney disease, stage 3 (moderate); J44.9 Chronic obstructive pulmonary disease, unspecified; K21.9 Gastro-esophageal reflux disease without esophagitis; D63.1 Anemia in chronic kidney disease; E11.65 Type 2 diabetes mellitus with hyperglycemia; K52.9 Noninfective gastroenteritis and colitis, unspecified

== ENCOUNTER 2017-08-09 20:11 | Inpatient (IN) | payer MEDICARE ==
[~2017-08-09] VITALS: Ht 167.6 cm; Wt 73.0 kg
--- NOTE | ~2017-08-09 | EC ---
PATIENT:WASHINGTON HU DATE OF SERVICE: 08/10/17 SEX: M MEDICAL RECORD: [id number] DATE OF : 47 LOCATION:D.MS [place] AGE OF PATIENT: 71 ADMISSION DATE: 08/10/17 REFERRING PHYSICIAN: INTERPRETING PHYSICIAN: SAL BENITEZ MD ECHOCARDIOGRAM REPORT ECHO CHARGES 4 ECHO COMPLETE CLINICAL DIAGNOSIS: LIGHTHEADEDNESS ECHOCARDIOGRAPHIC MEASUREMENTS (adult normal given) AC root (d.<3.7cm) 3.4 cm LV Septum d (<1.2 cm> 1.1 cm Valve Excursion 1.6 cm LV Septum (systole) 1.4 cm Left Atria (s.<4.0cm> 4.0 cm LVPW d(<1.2cm) 1.2 cm RV (d.<2.3cm) 3.5 cm LVPW (sytole) 1.5 cm LV diastole(<5.6CM) 4.7 cm MV E-F(>70mm/sec) cm LV systole 3.1 cm LVOT Diameter 1.8 cm MV exc.(>10mm) cm Est.ejection fraction (50-75%) % Pericardial Effusion N DOPPLER: LVIT cm/sec A 84.0 cm/sec E 71.0 cm/sec LA cm/sec RVSP 45 mmHg LVOT 91 cm/sec AOP1/2T m/s Asc. Ao 135 cm/sec RVOT 85 cm/sec RA cm/sec PA 100 cm/sec AV Gradient Peak 7.32 mmHg AV Mean 3.03 mmHg AV Area 2.1 cm MV Gradient Peak 4.16 mmHg MV Mean 1.41 mmHg MV Area cm COMMENTS: Curing Finisher: 2 MANI RAI Hr Receptionist: 3 Dr. Durham TAPE# PACS DATE OF SERVICE: 08/11/2017 Adequate 2D echo, color flow and spectral Doppler, and M-mode. No LVH. LV internal dimension is normal. Wall motion is normal. EF is greater than 55%. Aortic valve sclerosis without stenosis by Doppler interrogation. Moderate AI by color flow imaging. Left atrium is upper limits of normal at 4.0 cm. Mitral valve is thickened. Mild MR. Right-sided chamber is grossly normal. Mild TR. RV systolic pressure mildly elevated at 45 mmHg. TRANSINT:[id number] Voice Confirmation ID: [id number] DOCUMENT ID: [id number] ECHOCARDIOGRAM REPORT [id number] WASHINGTON HU GREGORY A MD CC: [id number] DICTATION DATE: 08/11/17 1148 MANAGER MED SURG: 08/11/17 1522 DIS IN 08/11/[id number] [place] [id number]
[~2017-08-09 20:11] MED LIST changes: +FLORINEF 0.1 M0.1 MG PO; +HYDROCHLOROTHIA50 MG PO; +METOPROLOL TART50 MG PO; +POTASSIUM CHLO10 ME1 PO; +STOOL SOFTENER250 MG PO
[2017-08-09 21:27] LABS: BASOPHILS 0.1 % (0-2); EOSINOPHILS 0.8 % (0-7); HEMATOCRIT 35.5 % (42.0-54.0); HEMOGLOBIN 12.2 g/dL (13.5-17.5); IMMATURE GRANULOCYTES 0.3 % (0-5); LYMPHOCYTES 25.2 % (15-50); MCH 32.2 pg (26.0-34.0); MCHC 34.4 g/dL (31.0-37.0); MCV 93.7 fL (80.0-100.0); MEAN PLATELET VOLUME 9.5 fL (7.4-10.4); MONOCYTES 8.6 % (2-11); PLATELET COUNT 187 10x3/uL (130-400); RBC 3.79 10x6/uL (4.20-6.10); RDW 14.2 % (11.5-14.5); WBC 7.3 10x3/uL (4.8-10.8)
[2017-08-09 21:40] LABS: ALBUMIN 3.6 g/dL (3.4-5.0); ALKALINE PHOSPHATASE 75 U/L (46-116); ALT (SGPT) 16 U/L (10-68); BILIRUBIN - TOTAL 0.38 mg/dL (0.2-1.3); CALC OSMOLALITY 286 mosm/kg (275-300); CALCIUM 8.8 mg/dL (8.5-10.1); CARBON DIOXIDE 28.1 mmol/L (21.0-32.0); CHLORIDE - SERUM 102 mmol/L (98-107); SODIUM 138 mmol/L (136-145); UREA NITROGEN 24 mg/dL (7-18); eGFR NON AFRICAN AMERICAN 35 mL/min (90-120)
[2017-08-09 21:46] LABS: GLUCOSE 216 mg/dL (74-106)
[2017-08-09 21:52] LABS: CKMB 1.1 U/L (0.0-3.6); CREATINE KINASE 113 UL (21-232); MAGNESIUM - SERUM 2.4 mg/dL (1.8-2.4); TROPONIN-I < 0.017 ng/mL (0.000-0.060)
[2017-08-10 01:48] LABS: CKMB 0.7 U/L (0.0-3.6); CREATINE KINASE 114 UL (21-232); TROPONIN-I < 0.017 ng/mL (0.000-0.060)
[2017-08-10 02:09] VITALS: BP 179/74; BMI 26.0
[2017-08-10 04:00] VITALS: BP 168/89
[2017-08-10 04:56] LABS: BASOPHILS 0.3 % (0-2); EOSINOPHILS 1.5 % (0-7); HEMATOCRIT 35.2 % (42.0-54.0); HEMOGLOBIN 11.9 g/dL (13.5-17.5); IMMATURE GRANULOCYTES 0.2 % (0-5); LYMPHOCYTES 31.5 % (15-50); MCH 31.7 pg (26.0-34.0); MCHC 33.8 g/dL (31.0-37.0); MCV 93.9 fL (80.0-100.0); MEAN PLATELET VOLUME 9.7 fL (7.4-10.4); MONOCYTES 11.8 % (2-11); NEUTROPHILS 54.7 % (40-80); PLATELET COUNT 179 10x3/uL (130-400); RBC 3.75 10x6/uL (4.20-6.10); RDW 14.3 % (11.5-14.5); WBC 6.2 10x3/uL (4.8-10.8)
[2017-08-10 05:26] LABS: CALCIUM 8.5 mg/dL (8.5-10.1); CARBON DIOXIDE 27.1 mmol/L (21.0-32.0); CHLORIDE - SERUM 101 mmol/L (98-107); CREATINE KINASE 92 UL (21-232); CREATININE - SERUM 1.8 mg/dL (0.6-1.3); MAGNESIUM - SERUM 2.2 mg/dL (1.8-2.4); POTASSIUM - SERUM 3.5 mmol/L (3.5-5.1); SODIUM 137 mmol/L (136-145); UREA NITROGEN 23 mg/dL (7-18); eGFR NON AFRICAN AMERICAN 40 mL/min (90-120)
[2017-08-10 05:33] LABS: CALC OSMOLALITY 280 mosm/kg (275-300); GLUCOSE 150 mg/dL (74-106); TROPONIN-I < 0.017 ng/mL (0.000-0.060)
[2017-08-10 10:06] VITALS: BMI 25.9
[2017-08-10 12:02] VITALS: BP 180/74
[2017-08-10 14:06] VITALS: Ht 167.6 cm; Wt 73.0 kg
[2017-08-10 14:14] LABS: CREATINE KINASE 86 UL (21-232)
[2017-08-10 14:15] LABS: TROPONIN-I < 0.017 ng/mL (0.000-0.060)
[2017-08-10 14:58] LABS: % SATURATION 25 % (15-55); IRON 72 ug/dl (35-150); TOTAL IRON BIND CAPACITY 283 ug/dl (260-445); UNSAT IRON BIND CAPACITY 211 ug/dl (150-375)
[2017-08-10 17:44] LABS: ERYTHROCYTE SEDIMENTATION RATE 8 mm/hr (0-20)
[2017-08-10 20:00] VITALS: BP 184/90
[2017-08-11] VITALS: BP 182/96
[2017-08-11 04:00] VITALS: BP 172/88
[2017-08-11 06:33] LABS: HEMATOCRIT 34.8 % (42.0-54.0); HEMOGLOBIN 12.5 g/dL (13.5-17.5); LYMPHOCYTES 17.7 % (15-50); MCH 32.1 pg (26.0-34.0); MCHC 35.9 g/dL (31.0-37.0); MCV 89.2 fL (80.0-100.0); MEAN PLATELET VOLUME 9.6 fL (7.4-10.4); NEUTROPHILS 74.5 % (40-80); PLATELET COUNT 198 10x3/uL (130-400); RDW 14.7 % (11.5-14.5); WBC 12.1 10x3/uL (4.8-10.8)
[2017-08-11 06:35] LABS: ANION GAP 14.7 mmol/L (8-16); CALCIUM 8.7 mg/dL (8.5-10.1); CARBON DIOXIDE 24.4 mmol/L (21.0-32.0); CREATININE - SERUM 1.6 mg/dL (0.6-1.3); POTASSIUM - SERUM 3.1 mmol/L (3.5-5.1)
[2017-08-11 08:05] VITALS: BP 160/81
[2017-08-11 08:16] LABS: FOLATE (FOLIC ACID) - SERUM 14.6 ng/mL (>3.0)
[2017-08-11] MEDS ORDERED: ZANAFLEX4 MG PO (11:53)
[2017-08-11 12:25] VITALS: BP 159/82
== END 2017-08-11 12:30 | disposition home or self-care (01) | DRG 312 ==
LOC: D.ER 20:11 → OBSVTIME 08-10 00:50 → D.MS 08-10 00:50
PROVIDERS: Family Medicine; Internal Medicine Nephrology
DX: R55 Syncope and collapse (principal); N17.9 Acute kidney failure, unspecified; A09 Infectious gastroenteritis and colitis, unspecified; R42 Dizziness and giddiness; R40.1 Stupor; T42.8X5A Adverse effect of antiparkinsonism drugs and other central muscle-tone depressants, initial encounter; R19.7 Diarrhea, unspecified; E11.65 Type 2 diabetes mellitus with hyperglycemia; Z79.4 Long term (current) use of insulin; E11.40 Type 2 diabetes mellitus with diabetic neuropathy, unspecified; I10 Essential (primary) hypertension; J44.9 Chronic obstructive pulmonary disease, unspecified; E11.22 Type 2 diabetes mellitus with diabetic chronic kidney disease; I12.9 Hypertensive chronic kidney disease with stage 1 through stage 4 chronic kidney disease, or unspecified chronic kidney disease; N18.9 Chronic kidney disease, unspecified; J32.9 Chronic sinusitis, unspecified; D64.9 Anemia, unspecified; K74.60 Unspecified cirrhosis of liver

== ENCOUNTER 2017-09-11 13:22 | Emergency (ER) | payer MEDICARE ==
[2017-08-10 14:06] VITALS: BMI 25.9
[2017-09-11 13:54] LABS: BASOPHILS 0.2 % (0-2); EOSINOPHILS 1.4 % (0-7); HEMATOCRIT 28.9 % (42.0-54.0); HEMOGLOBIN 10.2 g/dL (13.5-17.5); IMMATURE GRANULOCYTES 0.3 % (0-5); LYMPHOCYTES 20.9 % (15-50); MCHC 35.3 g/dL (31.0-37.0); MCV 90.6 fL (80.0-100.0); MEAN PLATELET VOLUME 8.9 fL (7.4-10.4); MONOCYTES 8.9 % (2-11); NEUTROPHILS 68.3 % (40-80); RBC 3.19 10x6/uL (4.20-6.10); RDW 13.5 % (11.5-14.5); WBC 6.4 10x3/uL (4.8-10.8)
[2017-09-11 13:55] LABS: PLATELET COUNT 153 10x3/uL (130-400)
[2017-09-11 14:08] LABS: ALBUMIN 2.8 g/dL (3.4-5.0); ANION GAP 8.4 mmol/L (8-16); BILIRUBIN - TOTAL 0.23 mg/dL (0.2-1.3); CALCIUM 8.4 mg/dL (8.5-10.1); CARBON DIOXIDE 31.5 mmol/L (21.0-32.0); CREATININE - SERUM 1.7 mg/dL (0.6-1.3); PROTEIN - SERUM 6.7 g/dL (6.4-8.2)
[2017-09-11 14:10] LABS: POTASSIUM - SERUM 2.9 mmol/L (3.5-5.1)
[2017-09-11 14:40] LABS: APPEARANCE CLEAR (CLEAR); BACTERIA FEW /hpf (NONE SEEN); BILIRUBIN NEGATIVE (NEGATIVE); COLOR YELLOW (YELLOW); EPITHELIAL CELLS RARE /hpf (0-5); GLUCOSE 100 mg/dL (NEGATIVE); KETONE NEGATIVE (NEGATIVE); NITRITE NEGATIVE (NEGATIVE); PROTEIN NEGATIVE (NEGATIVE); RED CELLS - URINE 0-5 /hpf (0-5); SPECIFIC GRAVITY 1.005 (1.005-1.020); UROBILINOGEN NORMAL (NORMAL)
== END 2017-09-11 16:08 | disposition home or self-care (01) ==
LOC: D.ER 13:22
PROVIDERS: Emergency Medicine
DX: R53.1 Weakness (principal); E87.6 Hypokalemia; E11.9 Type 2 diabetes mellitus without complications; Z79.4 Long term (current) use of insulin; N28.9 Disorder of kidney and ureter, unspecified; D64.9 Anemia, unspecified

== ENCOUNTER 2018-04-05 12:33 | Emergency (ER) | payer OTHER ==
[~2018-04-05] VITALS: Ht 167.6 cm; Wt 72.7 kg
[2018-04-05 12:54] VITALS: Ht 167.6 cm; Wt 72.7 kg
[2018-04-05 13:16] LABS: APPEARANCE CLEAR (CLEAR); BILIRUBIN NEGATIVE (NEGATIVE); COLOR YELLOW (YELLOW); GLUCOSE NEGATIVE (NEGATIVE); KETONE NEGATIVE (NEGATIVE); NITRITE NEGATIVE (NEGATIVE); PROTEIN NEGATIVE (NEGATIVE); SPECIFIC GRAVITY 1.015 (1.005-1.020); UROBILINOGEN NORMAL (NORMAL)
[2018-04-05 13:18] LABS: UDS - AMPHET NEGATIVE QUAL (NEGATIVE); UDS - BARB NEGATIVE QUAL (NEGATIVE); UDS - BENZO NEGATIVE QUAL (NEGATIVE); UDS - COCAINE NEGATIVE QUAL (NEGATIVE); UDS - OPIATE NEGATIVE QUAL (NEGATIVE); UDS - PCP NEGATIVE QUAL (NEGATIVE); UDS - THC NEGATIVE QUAL (NEGATIVE)
[2018-04-05 14:39] LABS: BASOPHILS 0.3 % (0-2); EOSINOPHILS 1.3 % (0-7); HEMOGLOBIN 13.8 g/dL (13.5-17.5); IMMATURE GRANULOCYTES 0.3 % (0-5); LYMPHOCYTES 25.9 % (15-50); MCH 32.1 pg (26.0-34.0); MCHC 34.5 g/dL (31.0-37.0); MEAN PLATELET VOLUME 10.4 fL (7.4-10.4); MONOCYTES 8.9 % (2-11); NEUTROPHILS 63.3 % (40-80); RDW 14.4 % (11.5-14.5); WBC 8.7 10x3/uL (4.8-10.8)
[2018-04-05 14:40] LABS: ALBUMIN 3.5 g/dL (3.4-5.0); ANION GAP 10.4 mmol/L (8-16); BILIRUBIN - TOTAL 0.28 mg/dL (0.2-1.3); CALCIUM 8.7 mg/dL (8.5-10.1); CREATININE - SERUM 1.7 mg/dL (0.6-1.3); POTASSIUM - SERUM 4.4 mmol/L (3.5-5.1); PROTEIN - SERUM 8.6 g/dL (6.4-8.2)
[2018-04-05 14:42] LABS: PLATELET COUNT 188 10x3/uL (130-400)
[2018-04-05 14:48] LABS: THYROID STIMULATING HORMONE 1.91 uIU/mL (0.36-3.74)
[2018-04-05 15:46] VITALS: BP 120/71
== END 2018-04-05 15:47 | disposition home or self-care (01) ==
LOC: D.ER 12:33
PROVIDERS: Family Medicine
DX: F32.9 Major depressive disorder, single episode, unspecified (principal); E11.9 Type 2 diabetes mellitus without complications; I12.9 Hypertensive chronic kidney disease with stage 1 through stage 4 chronic kidney disease, or unspecified chronic kidney disease; N18.9 Chronic kidney disease, unspecified; F17.200 Nicotine dependence, unspecified, uncomplicated

== ENCOUNTER 2018-07-02 23:40 | Emergency (ER) | payer OTHER ==
[~2018-07-02] VITALS: Ht 167.6 cm; Wt 81.8 kg
[2018-07-02 23:53] VITALS: Ht 167.6 cm; Wt 81.8 kg
[2018-07-03 00:32] LABS: HEMATOCRIT 35.7 % (42.0-54.0); HEMOGLOBIN 12.9 g/dL (13.5-17.5); LYMPHOCYTES 25.8 % (15-50); MCH 33.3 pg (26.0-34.0); MCHC 36.1 g/dL (31.0-37.0); MCV 92.2 fL (80.0-100.0); MEAN PLATELET VOLUME 9.2 fL (7.4-10.4); NEUTROPHILS 63.2 % (40-80); PLATELET COUNT 186 10x3/uL (130-400); RBC 3.87 10x6/uL (4.20-6.10); RDW 13.3 % (11.5-14.5); WBC 7.3 10x3/uL (4.8-10.8)
[2018-07-03 00:51] LABS: ALBUMIN 3.6 g/dL (3.4-5.0); ANION GAP 18.2 mmol/L (8-16); BILIRUBIN - TOTAL 0.46 mg/dL (0.2-1.3); CALCIUM 8.7 mg/dL (8.5-10.1); CARBON DIOXIDE 21.5 mmol/L (21.0-32.0); CREATININE - SERUM 1.7 mg/dL (0.6-1.3); POTASSIUM - SERUM 3.7 mmol/L (3.5-5.1)
[2018-07-03 02:25] VITALS: BP 157/81
== END 2018-07-03 02:26 | disposition home or self-care (01) ==
LOC: D.ER 23:40
PROVIDERS: Family Medicine
DX: J06.9 Acute upper respiratory infection, unspecified (principal); E11.9 Type 2 diabetes mellitus without complications; F17.200 Nicotine dependence, unspecified, uncomplicated

== ENCOUNTER 2018-08-13 14:25 | Emergency (ER) | payer OTHER ==
[~2018-08-13] VITALS: Ht 167.6 cm; Wt 77.3 kg
[2018-08-13 14:27] VITALS: Ht 167.6 cm; Wt 77.3 kg
[2018-08-13 15:05] LABS: BASOPHILS 0.3 % (0-2); EOSINOPHILS 1.2 % (0-7); HEMATOCRIT 42.2 % (42.0-54.0); HEMOGLOBIN 15.1 g/dL (13.5-17.5); IMMATURE GRANULOCYTES 0.2 % (0-5); LYMPHOCYTES 28.1 % (15-50); MCH 32.9 pg (26.0-34.0); MCHC 35.8 g/dL (31.0-37.0); MCV 91.9 fL (80.0-100.0); MONOCYTES 9.1 % (2-11); NEUTROPHILS 61.1 % (40-80); PLATELET COUNT 197 10x3/uL (130-400); RBC 4.59 10x6/uL (4.20-6.10); RDW 12.6 % (11.5-14.5); WBC 5.9 10x3/uL (4.8-10.8)
[2018-08-13 15:28] LABS: ALBUMIN 3.2 g/dL (3.4-5.0); BILIRUBIN - TOTAL 0.49 mg/dL (0.2-1.3); CALCIUM 8.3 mg/dL (8.5-10.1); CARBON DIOXIDE 24.2 mmol/L (21.0-32.0); CREATININE - SERUM 1.5 mg/dL (0.6-1.3); POTASSIUM - SERUM 4.2 mmol/L (3.5-5.1); PROTEIN - SERUM 7.3 g/dL (6.4-8.2)
[2018-08-13 15:58] LABS: TROPONIN-I 0.026 ng/mL (0.000-0.060)
[2018-08-13 16:51] LABS: APPEARANCE CLEAR (CLEAR); BILIRUBIN NEGATIVE (NEGATIVE); COLOR YELLOW (YELLOW); GLUCOSE NEGATIVE (NEGATIVE); KETONE SMALL mg/dL (NEGATIVE); NITRITE NEGATIVE (NEGATIVE); PROTEIN NEGATIVE (NEGATIVE); SPECIFIC GRAVITY 1.015 (1.005-1.020); UROBILINOGEN NORMAL (NORMAL)
[2018-08-13 16:59] VITALS: BP 174/90
== END 2018-08-13 16:59 | disposition home or self-care (01) ==
LOC: D.ER 14:25
PROVIDERS: Emergency Medicine
DX: R33.9 Retention of urine, unspecified (principal)

== ENCOUNTER 2019-01-26 18:59 | Emergency (ER) | payer MEDICARE ==
[~2019-01-26] VITALS: Ht 167.6 cm; Wt 61.2 kg
[2019-01-26 19:01] VITALS: Ht 167.6 cm; Wt 61.2 kg
[2019-01-26 19:18] LABS: BASOPHILS 0.4 % (0-2); EOSINOPHILS 1.1 % (0-7); HEMATOCRIT 39.9 % (42.0-54.0); IMMATURE GRANULOCYTES 0.2 % (0-5); LYMPHOCYTES 25.6 % (15-50); MCH 31.5 pg (26.0-34.0); MCHC 35.1 g/dL (31.0-37.0); MCV 89.7 fL (80.0-100.0); MONOCYTES 7.6 % (2-11); NEUTROPHILS 65.1 % (40-80); PLATELET COUNT 216 10x3/uL (130-400); RBC 4.45 10x6/uL (4.20-6.10); RDW 12.9 % (11.5-14.5); WBC 8.2 10x3/uL (4.8-10.8)
[2019-01-26 19:32] LABS: ALBUMIN 3.2 g/dL (3.4-5.0); ALKALINE PHOSPHATASE 83 U/L (46-116); ALT (SGPT) 26 U/L (10-68); BILIRUBIN - TOTAL 0.33 mg/dL (0.2-1.3); CALC OSMOLALITY 277 mosm/kg (275-300); CALCIUM 8.2 mg/dL (8.5-10.1); CARBON DIOXIDE 22.4 mmol/L (21.0-32.0); CHLORIDE - SERUM 99 mmol/L (98-107); CREATININE - SERUM 1.6 mg/dL (0.6-1.3); PROTEIN - SERUM 7.3 g/dL (6.4-8.2); SODIUM 131 mmol/L (136-145); UREA NITROGEN 26 mg/dL (7-18); eGFR NON AFRICAN AMERICAN 45 mL/min (90-120)
[2019-01-26 19:35] LABS: GLUCOSE 271 mg/dL (74-106); LIPASE 262 U/L (73-393)
[2019-01-26 19:36] LABS: TROPONIN-I < 0.017 ng/mL (0.000-0.060)
[2019-01-26 20:30] LABS: APPEARANCE CLEAR (CLEAR); COLOR YELLOW (YELLOW); GLUCOSE 1000 mg/dL (NEGATIVE); NITRITE NEGATIVE (NEGATIVE); PROTEIN NEGATIVE (NEGATIVE); SPECIFIC GRAVITY 1.025 (1.005-1.020)
[2019-01-26 20:31] LABS: BILIRUBIN NEGATIVE (NEGATIVE); KETONE NEGATIVE (NEGATIVE); UROBILINOGEN NORMAL (NORMAL)
[2019-01-26 20:32] LABS: RED CELLS - URINE OCC /hpf (0-5)
[2019-01-26 20:33] LABS: BACTERIA FEW /hpf (NONE SEEN); HYALINE CAST 0-5 /lpf (NONE SEEN)
[2019-01-26 21:28] VITALS: BP 182/82
== END 2019-01-26 21:28 | disposition home or self-care (01) ==
LOC: D.ER 18:59
PROVIDERS: Family Medicine
DX: S30.1XXA Contusion of abdominal wall, initial encounter (principal); W18.09XA Striking against other object with subsequent fall, initial encounter; Y93.89 Activity, other specified; Y92.89 Other specified places as the place of occurrence of the external cause; E11.9 Type 2 diabetes mellitus without complications; N28.9 Disorder of kidney and ureter, unspecified

== ENCOUNTER 2019-04-30 03:25 | Inpatient (IN) | payer MEDICARE ==
[~2019-04-30] VITALS: Ht 167.6 cm; Wt 65.8 kg
[2019-04-30] MEDS ORDERED: HYTRIN10 MG PO (03:31)
[2019-04-30] MEDS ORDERED: CYMBALTA60 MG PO (03:32)
[2019-04-30] MEDS ORDERED: KEFLEX500 MG PO (03:32)
[2019-04-30] MEDS ORDERED: FLOMAX0.4 MG PO (03:32)
[2019-04-30 04:06] LABS: BASOPHILS 0.1 % (0-2); EOSINOPHILS 1.1 % (0-7); HEMATOCRIT 37.2 % (42.0-54.0); HEMOGLOBIN 12.8 g/dL (13.5-17.5); IMMATURE GRANULOCYTES 0.3 % (0-5); LYMPHOCYTES 20.2 % (15-50); MCH 31.4 pg (26.0-34.0); MCHC 34.4 g/dL (31.0-37.0); MCV 91.2 fL (80.0-100.0); MEAN PLATELET VOLUME 9.8 fL (7.4-10.4); MONOCYTES 8.9 % (2-11); NEUTROPHILS 69.4 % (40-80); PLATELET COUNT 196 10x3/uL (130-400); RBC 4.08 10x6/uL (4.20-6.10); RDW 13.1 % (11.5-14.5)
[2019-04-30 04:14] LABS: ANION GAP 14.2 mmol/L (8-16); CALCIUM 8.4 mg/dL (8.5-10.1); CARBON DIOXIDE 20.2 mmol/L (21.0-32.0); CREATININE - SERUM 1.4 mg/dL (0.6-1.3); POTASSIUM - SERUM 4.4 mmol/L (3.5-5.1)
[2019-04-30 04:23] LABS: ALBUMIN 2.8 g/dL (3.4-5.0); BILIRUBIN - TOTAL 0.31 mg/dL (0.2-1.3); PROTEIN - SERUM 6.6 g/dL (6.4-8.2); TROPONIN-I 0.027 ng/mL (0.000-0.060)
--- NOTE | 2019-04-30 04:30 | NUR ---
RESTING IN ROOM QUIETLY, DENIES PAIN OR NAUSEA. RESP EVEN AND UNLABORED. WARM BLANKET GIVEN
--- NOTE | 2019-04-30 05:30 | NUR ---
RESTIN IN ROOM QUIETLY. UPDATED ON WAITING FOR RESULTS. DENIES N/V
[2019-04-30 06:12] LABS: APPEARANCE HAZY (CLEAR); COLOR YELLOW (YELLOW); SPECIFIC GRAVITY 1.025 (1.005-1.020)
[2019-04-30 06:13] LABS: BILIRUBIN NEGATIVE (NEGATIVE); GLUCOSE 500 mg/dL (NEGATIVE); KETONE NEGATIVE (NEGATIVE); NITRITE NEGATIVE (NEGATIVE); PROTEIN NEGATIVE (NEGATIVE); UROBILINOGEN NORMAL (NORMAL)
[2019-04-30 07:15] VITALS: BP 110/73
--- NOTE | 2019-04-30 07:15 | NUR ---
ASSUMED CARE OF PT. RESTING IN BED WITH EYES CLOSED. AROUSES EASILY. NAD, VSS. RESP EVEN/UNALBORED. EXPL POC TO PT AND FAMILY. VERB UNDER.
--- NOTE | 2019-04-30 07:20 | NUR ---
FSBS= 170 MG/DL PT NPO NO INSULIN ADMIN
--- NOTE | 2019-04-30 07:46 | NUR ---
REPORT CALLED TO STACEY CANDELARIA
--- NOTE | 2019-04-30 07:48 | NUR ---
TRANSPORTED TO ROOM #2206. CONDITION STABLE. NS INFUSING @ 125ML/HR
[2019-04-30 09:53] VITALS: BMI 23.4
[2019-04-30 11:50] LABS: % SATURATION 32 % (15-55); CHOL - HDL RATIO 4.6 ratio (2.3-4.9); IRON 85 ug/dl (35-150); LDL-HDL RATIO 2.9 ratio (1.5-3.5); TOTAL IRON BIND CAPACITY 258 ug/dl (260-445); UNSAT IRON BIND CAPACITY 173 ug/dl (150-375)
[2019-04-30 12:43] VITALS: BP 135/74
[2019-04-30 16:16] VITALS: BP 146/71
--- NOTE | 2019-04-30 19:30 | NUR ---
LYING IN BED. ALERT AND ORIENTED X4. PTS SISTER AT BEDSIDE. RESP EVEN AND NONLABORED. BBS CTA. DENIES PAIN. NO N/V. REQUESTING FOOD. INFORMED PT THAT HE IS NPO EXCEPT MEDS. HE VERBALIZED UNDERSTANDING. REPORTS LAST BM ON 04/28. DRANK MAG CITRATE TODAY, NO RESULTS YET. PROD COUGH NOTED WITH YELLOW SPUTUM. AMB WITH ASSIST X1. GAIT SLIGHTLY UNSTEADY. DANIEL ALARM IN USE FOR PT SAFETY. PT REFUSES TO WEAR A GOWN. HAS STREET CLOTHES ON. NS @ 125 ML/HR INFUSING IN RT FOREARM WITHOUT DIFF. NO DISTRESS. SR ELEVATED X2. CL IN REACH.
[2019-04-30 20:28] VITALS: BP 135/68
--- NOTE | 2019-04-30 20:45 | NUR ---
ASSISTED UP TO BR TO VOID, PT GOT UP CAUSING BED ALARM TO ACTIVATE. EXPLAINED TO PT THAT HE NEEDS TO CALL FOR ASSISTANCE WITH AMB. HE VERBALIZED UNDERSTANDING. GAIT IS SLIGHTLY UNSTEADY. ASSISTED BACK TO BED. DANIEL ALARM ON. SISTER AT BEDSIDE. CL IN REACH.
--- NOTE | 2019-05-01 02:42 | NUR ---
INCONT OF STOOL AT THIS TIME IN BED. LARGE LIQUID STOOL NOTED. ASSISTED WITH SHOWER AT THIS TIME PER SCHOOL DIRECTOR. LINENS CHANGED. BED ALARM ON. SR ELEVATED X2. CL IN REACH. SISTER AT BEDSIDE.
[2019-05-01 04:54] VITALS: BP 142/75
[2019-05-01 06:50] LABS: BASOPHILS 0.2 % (0-2); EOSINOPHILS 1.7 % (0-7); HEMOGLOBIN 12.5 g/dL (13.5-17.5); IMMATURE GRANULOCYTES 0.2 % (0-5); LYMPHOCYTES 30.3 % (15-50); MCH 31.3 pg (26.0-34.0); MCHC 33.8 g/dL (31.0-37.0); MCV 92.5 fL (80.0-100.0); MEAN PLATELET VOLUME 10.6 fL (7.4-10.4); MONOCYTES 8.2 % (2-11); NEUTROPHILS 59.4 % (40-80); PLATELET COUNT 193 10x3/uL (130-400); RDW 13.4 % (11.5-14.5)
[2019-05-01 06:59] LABS: WBC 5.8 10x3/uL (4.8-10.8)
[2019-05-01 07:16] LABS: ALBUMIN 2.8 g/dL (3.4-5.0); ANION GAP 11.5 mmol/L (8-16); BILIRUBIN - TOTAL 0.27 mg/dL (0.2-1.3); CALCIUM 7.9 mg/dL (8.5-10.1); CARBON DIOXIDE 22.5 mmol/L (21.0-32.0); CREATININE - SERUM 1.2 mg/dL (0.6-1.3); PROTEIN - SERUM 5.9 g/dL (6.4-8.2)
--- NOTE | 2019-05-01 07:40 | NUR ---
NOTIFIED LM ZAIDI OF [place] OF 727. PT TO REMAIN NPO EXCEPT SIPS OF WATER WITH MEDICATIONS
--- NOTE | 2019-05-01 07:42 | NUR ---
PT RESTING QUIETLY IN BED. AWAKENS STAFF ENTERED ROOM. DENIES PAIN AT THIS TIME. IV TO RIGHT AC WITH NS @ 125ML/HR INFUSING VIA PUMP. SITE WITHOUT REDNESS OR EDEMA. DANIEL MAT IN PLACE AND ON. DENIES FURTHER NEEDS AT THIS TIME. CL WITHIN REACH. ENCOURAGED TO CALL WITH NEEDS. CONTINUE POC
[2019-05-01 08:48] VITALS: BP 120/60
[2019-05-01 09:43] VITALS: Ht 167.6 cm; Wt 65.8 kg
[2019-05-01 12:57] VITALS: BP 119/58
[2019-05-01 16:43] VITALS: BP 126/79
[2019-05-01 19:00] VITALS: BP 130/63
--- NOTE | 2019-05-01 19:00 | NUR ---
BEDSIDE REPORT RECEIVED AND CARE OF PT ASSUMED. PT LYING IN LOW VERMA'S POSITION WATCHING TV. IV TO RIGHT AC PATENT WITH NS INFUSING AT 125 ML/HR. DANIEL ALARM IN USE. SCD'S IN PLACE ON BLE. WILL MONITOR FOR NEEDS.
--- NOTE | 2019-05-01 21:26 | NUR ---
HS MEDICATIONS GIVEN WITH SIPS OF WATER. FSBS 89 THIS CHECK REQUIRING NO COVERAGE VIA SLIDING SCALE.
[2019-05-02 01:00] VITALS: BP 126/72
[2019-05-02 05:00] VITALS: BP 140/68
[2019-05-02 07:25] LABS: ALBUMIN 2.5 g/dL (3.4-5.0); ANION GAP 10.7 mmol/L (8-16); BILIRUBIN - TOTAL 0.35 mg/dL (0.2-1.3); CALCIUM 7.5 mg/dL (8.5-10.1); CARBON DIOXIDE 21.8 mmol/L (21.0-32.0); CREATININE - SERUM 1.2 mg/dL (0.6-1.3); POTASSIUM - SERUM 4.5 mmol/L (3.5-5.1); PROTEIN - SERUM 5.8 g/dL (6.4-8.2)
[2019-05-02 07:31] LABS: BASOPHILS 0.1 % (0-2); EOSINOPHILS 1.1 % (0-7); HEMATOCRIT 35.5 % (42.0-54.0); IMMATURE GRANULOCYTES 0.1 % (0-5); LYMPHOCYTES 22.5 % (15-50); MCH 31.4 pg (26.0-34.0); MCHC 33.8 g/dL (31.0-37.0); MCV 92.9 fL (80.0-100.0); MEAN PLATELET VOLUME 10.8 fL (7.4-10.4); MONOCYTES 8.3 % (2-11); NEUTROPHILS 67.9 % (40-80); PLATELET COUNT 183 10x3/uL (130-400); RBC 3.82 10x6/uL (4.20-6.10); RDW 13.4 % (11.5-14.5); WBC 7.5 10x3/uL (4.8-10.8)
[2019-05-02 08:45] VITALS: BP 100/53
[2019-05-02 12:43] VITALS: BP 113/57
[2019-05-02] MEDS ORDERED: METOPROLOL TART50 MG PO (12:45)
[2019-05-02] MEDS ORDERED: HYDROCHLOROTHIA50 MG PO (12:46)
[2019-05-02] MEDS ORDERED: NICODERM C1 PATCH .1 TRANSDERM (14:36)
--- NOTE | 2019-05-02 14:42 | MORECARE ---
CASE MANAGEMENT DISCHARGE SUMMARY PATIENT: WASHINGTON HU UNIT: [id number] ADM DATE: 04/30/19 AGE: 73 : 46 SEX: M ROOM/BED: D.2206 AUTHOR: ABA BARKER PHYSICIAN: REFERRING PHYSICIAN: GINGER SANTOS MD DATE OF SERVICE: 05/02/19 Discharge Plan Patient Name: WASHINGTON HU Facility: [facility]:[place] : 1945 Planned Disposition: Home or Self Care Anticipated Discharge Date: Discharge Date: Expected LOS: Initial Reviewer: [email or web address] Initial Review Date: 04/30/2019 Generated: 05/02/19 3:42 pm Comments DCP- Discharge Planning Updated by [email or web address]: Princess Whitfield on 05/02/19 1:[address] patient discharging home today, he stated his granddaughter has moved in with him. he does not need any dme and feels safe going home. CM to follow and assist as needed Patient Name: WASHINGTON HU Page [phone] at 1442 All edits/amendments must be made on the electronic document DICTATION DATE: 05/02/191441 STORE KEEPER: ELPIDIO 05/02/191441 RPT#: [id number] DC DATE: STATUS: ADM IN [facility] [address] [place] [address] END OF REPORT
--- NOTE | 2019-05-05 13:32 | MORECARE ---
CASE MANAGEMENT DISCHARGE SUMMARY PATIENT: WASHINGTON HU UNIT: [id number] ADM DATE: 04/30/19 AGE: 73 : 46 SEX: M ROOM/BED: D.2206 AUTHOR: ABA BARKER PHYSICIAN: REFERRING PHYSICIAN: GINGER SANTOS MD DATE OF SERVICE: 05/05/19 Discharge Plan Patient Name: WASHINGTON HU Facility: [facility]:[place] : 1945 Planned Disposition: Home or Self Care Anticipated Discharge Date: Discharge Date: 05/02/2019 Expected LOS: Initial Reviewer: [email or web address] Initial Review Date: 04/30/2019 Generated: 05/05/19 2:32 pm Comments DCP- Discharge Planning Updated by [email or web address]: Princess Whitfield on 05/02/19 1:[address] patient discharging home today, he stated his granddaughter has moved in with him. he does not need any dme and feels safe going home. CM to follow and assist as needed Last DP export: 05/02/19 1:42 Patient Name: WASHINGTON HU Page [id number] at 1332 All edits/amendments must be made on the electronic document DICTATION DATE: 05/05/19 1332 CHARCOAL BURNER BEEHIVE KILN: ELPIDIO 05/05/19 1332 RPT#: [id number] DC DATE:05/02/19 STATUS: DIS IN [facility] [address] [place] [address] END OF REPORT
== END 2019-05-02 16:06 | disposition home or self-care (01) | DRG 439 ==
LOC: D.ER 03:25 → D.MS 06:56
PROVIDERS: Family Medicine; ADMIT Internal Medicine Nephrology; ATTEND Internal Medicine Nephrology
DX: K85.90 Acute pancreatitis without necrosis or infection, unspecified (principal); E87.1 Hypo-osmolality and hyponatremia; F17.213 Nicotine dependence, cigarettes, with withdrawal; N17.9 Acute kidney failure, unspecified; K59.00 Constipation, unspecified; K21.9 Gastro-esophageal reflux disease without esophagitis; E11.22 Type 2 diabetes mellitus with diabetic chronic kidney disease; I12.9 Hypertensive chronic kidney disease with stage 1 through stage 4 chronic kidney disease, or unspecified chronic kidney disease; N18.9 Chronic kidney disease, unspecified; D63.1 Anemia in chronic kidney disease

== ENCOUNTER 2020-01-15 06:52 | Inpatient (IN) | payer MEDICARE ==
[~2020-01-15] VITALS: Ht 167.6 cm; Wt 68.0 kg
[2020-01-15] VITALS (8 sets, daily range): BP systolic 114–175; BP diastolic 63–89; BMI 24.2
[~2020-01-15 06:52] MED LIST changes: +CYMBALTA60 MG PO; -DESERYL100 MG PO; +HYTRIN10 MG PO; +KEFLEX500 MG PO; +NICODERM C1 PATCH .1 TRANSDERM; +TRAZODONE HCL150 MG PO
[2020-01-15] MEDS ORDERED: HYDROCHLOROTHIA50 MG PO (07:08)
[2020-01-15] MEDS ORDERED: GLUCOPHAGE500 MG PO (07:08)
[2020-01-15] MEDS ORDERED: GLUCOTROL 5 MG T5 MG PO (07:09)
[2020-01-15] MEDS ORDERED: CARAFATE1 G PO (07:09)
[2020-01-15] MEDS ORDERED: LISINOPRIL5 MG PO (07:09)
[2020-01-15 07:36] LABS: BASOPHILS 0.2 % (0-2); EOSINOPHILS 4.5 % (0-7); HEMATOCRIT 41.9 % (42.0-54.0); HEMOGLOBIN 14.9 g/dL (13.5-17.5); IMMATURE GRANULOCYTES 1.8 % (0-5); LYMPHOCYTES 11.4 % (15-50); MCH 31.8 pg (26.0-34.0); MCHC 35.6 g/dL (31.0-37.0); MCV 89.3 fL (80.0-100.0); MEAN PLATELET VOLUME 10.2 fL (7.4-10.4); MONOCYTES 9.8 % (2-11); NEUTROPHILS 72.3 % (40-80); PLATELET COUNT 214 10x3/uL (130-400); RBC 4.69 10x6/uL (4.20-6.10); RDW 12.2 % (11.5-14.5); WBC 11.2 10x3/uL (4.8-10.8)
--- NOTE | 2020-01-15 07:53 | NUR ---
OBTAINED BLOOD SAMPLES AND GIVEN TO HOTEL MAID. DRESSING APPLIED TO SITE.
[2020-01-15 07:54] LABS: ALBUMIN 3.6 g/dL (3.4-5.0); ALKALINE PHOSPHATASE 74 U/L (30-120); ALT (SGPT) 21 U/L (10-68); BILIRUBIN - TOTAL 0.61 mg/dL (0.2-1.3); CALC OSMOLALITY 258 mosm/kg (275-300); CALCIUM 9.9 mg/dL (8.5-10.1); CARBON DIOXIDE 24.7 mmol/L (21.0-32.0); CHLORIDE - SERUM 86 mmol/L (98-107); CREATININE - SERUM 1.7 mg/dL (0.6-1.3); GLUCOSE 234 mg/dL (74-106); LIPASE 936 U/L (73-393); PRO BNP 192 pg/mL (0-125); PROTEIN - SERUM 7.9 g/dL (6.4-8.2); SODIUM 121 mmol/L (136-145); THYROID STIMULATING HORMONE 1.39 uIU/mL (0.36-3.74); TROPONIN-I < 0.017 ng/mL (0.000-0.060); UREA NITROGEN 31 mg/dL (7-18); eGFR NON AFRICAN AMERICAN 42 mL/min (90-120)
[2020-01-15 08:12] LABS: BILIRUBIN NEGATIVE (NEGATIVE); GLUCOSE 500 mg/dL (NEGATIVE); KETONE NEGATIVE (NEGATIVE); NITRITE NEGATIVE (NEGATIVE); UROBILINOGEN NORMAL (NORMAL)
--- NOTE | 2020-01-15 08:44 | NUR ---
REPORTED CRITICAL LAB OF LACTIC ACID TO
--- NOTE | 2020-01-15 11:42 | NUR ---
blood sugar obtained 249 mg/dl.
--- NOTE | 2020-01-15 13:00 | NUR ---
REC'D TO ROOM 2217 AWAKE AND ALERT. RESP EVEN AND UNLABORED WITH NO DISTRESS NOTED. CAN EXPRESS NEEDS AND WANTS. NO C/O NOTED OR VOICED AT THIS TIME. TURN AND REPOSITION SELF AB ANY. AT BEDSIDE. C/L IN REACH AT BEDSIDE.
--- NOTE | 2020-01-15 18:00 | NUR ---
PT REFUSED TO HAVE SOAP HUSSEIN EMEMA. MASCARA MOLDER NOTIFIED. C/L IN REACH AT BEDSIDE.
--- NOTE | 2020-01-15 20:00 | NUR ---
PT SITTING UP IN BED WITHOUT DISTRESS, AOX4. AGREED TO TRY SUPPOSITORY. GAVE ORDERED. REQUESTED PAIN MED, GAVE MORPHINE ORDERED. DENIES OTHER NEEDS. CL IN REACH, WILL CTM
[2020-01-15 21:02] LABS: APTT 25.7 SECONDS (22.8-39.4); INR 1.05 (0.85-1.17); PROTIME 13.7 SECONDS (11.6-15.0)
[2020-01-16] VITALS: BP 105/54
[2020-01-16 04:00] VITALS: BP 157/81
[2020-01-16 07:40] LABS: BASOPHILS 0.1 % (0-2); EOSINOPHILS 1.2 % (0-7); HEMATOCRIT 36.7 % (42.0-54.0); HEMOGLOBIN 12.9 g/dL (13.5-17.5); IMMATURE GRANULOCYTES 0.2 % (0-5); MCH 31.6 pg (26.0-34.0); MCHC 35.1 g/dL (31.0-37.0); MEAN PLATELET VOLUME 9.1 fL (7.4-10.4); MONOCYTES 11.3 % (2-11); NEUTROPHILS 76.2 % (40-80); PLATELET COUNT 190 10x3/uL (130-400); RBC 4.08 10x6/uL (4.20-6.10); RDW 12.2 % (11.5-14.5); WBC 9.4 10x3/uL (4.8-10.8)
[2020-01-16 07:53] LABS: ALBUMIN 2.7 g/dL (3.4-5.0); ANION GAP 11.6 mmol/L (8-16); BILIRUBIN - TOTAL 0.44 mg/dL (0.2-1.3); CALCIUM 8.5 mg/dL (8.5-10.1); CARBON DIOXIDE 28.6 mmol/L (21.0-32.0); CREATININE - SERUM 1.5 mg/dL (0.6-1.3); MAGNESIUM - SERUM 1.6 mg/dL (1.8-2.4); POTASSIUM - SERUM 4.2 mmol/L (3.5-5.1); PROTEIN - SERUM 6.9 g/dL (6.4-8.2)
[2020-01-16 09:51] VITALS: BP 137/76
[2020-01-16 11:15] LABS: AMYLASE - SERUM 214 U/L (25-115)
[2020-01-16 11:16] LABS: LIPASE 407 U/L (73-393)
[2020-01-16 14:12] VITALS: Ht 167.6 cm; Wt 68.0 kg
[2020-01-16 14:57] VITALS: BP 133/79
--- NOTE | 2020-01-16 17:18 | NUR ---
DR CASTRO AND DR MONASLVE WITH NEPHROLOGY APPROVED PICC OR MIDLINE PLACEMENT.
[2020-01-16 20:00] VITALS: BP 146/70
--- NOTE | 2020-01-16 20:00 | NUR ---
PT LYING IN BED RESTING WITHOUT DISTRESS, AOX4. LEFT UPPER ARM MIDLINE INFUSING NS @ 75. SCDS ON. BED ALARM ON. CL IN REACH, WILL CTM
--- NOTE | 2020-01-16 20:12 | NUR ---
IV THERAPY DC'ED FROM RIGHT FOREARM TIP INTACT.
[2020-01-17 04:00] VITALS: BP 150/81
[2020-01-17 05:33] LABS: BASOPHILS 0.4 % (0-2); EOSINOPHILS 2.2 % (0-7); HEMATOCRIT 34.4 % (42.0-54.0); IMMATURE GRANULOCYTES 0.3 % (0-5); MCH 31.2 pg (26.0-34.0); MCHC 34.9 g/dL (31.0-37.0); MCV 89.4 fL (80.0-100.0); MEAN PLATELET VOLUME 9.3 fL (7.4-10.4); MONOCYTES 12.6 % (2-11); NEUTROPHILS 61.5 % (40-80); PLATELET COUNT 192 10x3/uL (130-400); RBC 3.85 10x6/uL (4.20-6.10); WBC 7.7 10x3/uL (4.8-10.8)
[2020-01-17 05:44] LABS: ALBUMIN 2.7 g/dL (3.4-5.0); ANION GAP 11.5 mmol/L (8-16); BILIRUBIN - TOTAL 0.41 mg/dL (0.2-1.3); CARBON DIOXIDE 25.2 mmol/L (21.0-32.0); CHOL - HDL RATIO 3.1 ratio (2.3-4.9); CREATININE - SERUM 1.3 mg/dL (0.6-1.3); LDL-HDL RATIO 1.8 ratio (1.5-3.5); POTASSIUM - SERUM 3.7 mmol/L (3.5-5.1)
[2020-01-17 08:51] VITALS: BP 140/72
[2020-01-17 09:52] LABS: AMYLASE - SERUM 157 U/L (25-115)
[2020-01-17 09:53] LABS: LIPASE 659 U/L (73-393)
--- NOTE | 2020-01-17 10:00 | NUR ---
RESTING IN BED, NO DISTRESS NOTED, NPO, CONT TO MONITOR SUGARS AND PAIN, IV CONT PER L ARM
[2020-01-17 14:02] VITALS: BP 143/80
[2020-01-17 17:09] VITALS: BP 168/72
--- NOTE | 2020-01-17 19:58 | NUR ---
PATIENT RESTING IN BED WITH NO S/S OF DISTRESS. DENIES NEEDS AT THIS TIME. BED IN LOWEST POSITION AND CALL LIGHT WITHIN REACH. ENCOURAGED THE PATIENT TO CALL IF HE HAS NEEDS. WILL CONTINUE TO MONITOR.
[2020-01-17 20:00] VITALS: BP 188/92
--- NOTE | 2020-01-17 22:45 | NUR ---
ADMINISTERED MEDS PER ORDERS. DENIES OTHER NEEDS. WILL CONTINUE TO MONITOR.
[2020-01-18 04:00] VITALS: BP 149/67
--- NOTE | 2020-01-18 08:39 | NUR ---
RESTING IN BED, NO DISTRESS NOTED, CONSUMING BREAKFAST, IV PER MIDLINE, CONT TO MONITOR SUGARS AND PAIN
[2020-01-18 08:54] LABS: HEMATOCRIT 35.2 % (42.0-54.0); HEMOGLOBIN 12.2 g/dL (13.5-17.5); LYMPHOCYTES 24.4 % (15-50); MCHC 34.7 g/dL (31.0-37.0); MCV 89.3 fL (80.0-100.0); MEAN PLATELET VOLUME 9.1 fL (7.4-10.4); PLATELET COUNT 209 10x3/uL (130-400); RBC 3.94 10x6/uL (4.20-6.10); RDW 12.1 % (11.5-14.5)
[2020-01-18 08:59] VITALS: BP 169/79
[2020-01-18 08:59] LABS: WBC 5.6 10x3/uL (4.8-10.8)
[2020-01-18 09:02] LABS: ALBUMIN 2.5 g/dL (3.4-5.0); ANION GAP 11.9 mmol/L (8-16); BILIRUBIN - TOTAL 0.34 mg/dL (0.2-1.3); CALCIUM 7.6 mg/dL (8.5-10.1); CARBON DIOXIDE 24.7 mmol/L (21.0-32.0); CREATININE - SERUM 1.2 mg/dL (0.6-1.3); MAGNESIUM - SERUM 1.9 mg/dL (1.8-2.4); POTASSIUM - SERUM 3.6 mmol/L (3.5-5.1); PROTEIN - SERUM 6.2 g/dL (6.4-8.2)
[2020-01-18 12:52] VITALS: BP 146/68
--- NOTE | 2020-01-18 14:46 | NUR ---
REVIEWED DC ORDERS WITH PT AND ,
--- NOTE | 2020-01-18 15:00 | NUR ---
REMOVED MIDLINE, MAY WELL, TIP INTACT, TAKEN TO PRIVATE VEHICLE PER W/C
--- NOTE | 2020-01-18 17:19 | MORECARE ---
CASE MANAGEMENT DISCHARGE SUMMARY PATIENT: WASHINGTON HU UNIT: [id number] ADM DATE: 01/15/20 AGE: 74 : 47 SEX: M ROOM/BED: D.2217 AUTHOR: MJ,DOC PHYSICIAN: REFERRING PHYSICIAN: SAL SOUSA MD DATE OF SERVICE: 01/18/20 Discharge Plan Patient Name: WASHINGTON HU Facility: [facility]:[place] : 1945 Planned Disposition: Home Anticipated Discharge Date: 01/18/20 Discharge Date: 01/18/2020 Expected LOS: 3 Initial Reviewer: [email or web address] Initial Review Date: 01/18/2020 Generated: 01/18/20 6:19 pm Comments DCP- Discharge Planning Updated by [email or web address]: Zamzam Lazar on 01/18/20 4:[address] Patient Name: WASHINGTON HU Admission Status: ER Accout number: [id number] Admission Date: 01-15-2020 : 1945 Admission Diagnosis: Attending: SERGIO Current LOS: 3 Anticipated DC Date: 01-18-2020 Planned Disposition: Home Primary Insurance: [employer] PPO [facility] Discharge Planning Comments: CM met with patient to complete initial dc planning assessment. CM educated patient on the CM role and verbal consent given by patient to complete assessment. Patient lives at home with family. Patient is independent. At discharge patient plans to return home and feels this is a safe discharge. CM discussed availability of home health, rehab services, and medical equipment. Patient will have family to transport home. Patient denied known discharge needs at this time. D/C IMM SIGNED 01/18/20 @ 1411 CM will continue to follow and will assist as needed with dc plans/needs. Educator Senior Clinical: Zamzam Lazar DCPIA - Discharge Planning Initial Assessment Updated by [email or web address]: Zamzam Lazar on 01/18/20 5:14 pm * Is the patient Alert and Oriented? Yes * How many steps to enter\exit or inside your home? RAMP * PCP [facility] * [facility]acy [facility] * Preadmission Environment Home with Family * ADLs Independent * Other Equipment WALKER, W/C , CANE * List name and contact numbers for known caregivers / representatives who currently or will assist patient after discharge: NAVEEN LUNA [facility] - [phone] * Verbal permission to speak to the caregivers and representatives has been obtained from the patient. Yes * Community resources currently utilized None * Additional services required to return to the preadmission environment? No * Can the patient safely return to the preadmission environment? Yes * Has this patient been hospitalized within the prior 30 days at any hospital? No Coverage Notice Reviewer: [email or web address] Bee Lazar Notice Issued Date-Time: 01/18/2020 14:11 Notice Type: IM Discharge Notice Notice Delivered To: Patient Relationship to Patient: Self Fraud Representative Name: Delivery Method: HAND - Hand Delivered Maci Days: Prior Verbal Notification: Recipient Understood Notice: Yes Recipient Signature: Yes Med Rec Note Co-signed by Attending: Coverage Notice Comment: Patient Name: WASHINGTON HU Page [phone] at 1719 All edits/amendments must be made on the electronic document DICTATION DATE: 01/18/201718 OTC CLERK: ELPIDIO 01/18/201718 RPT#: [id number] DC DATE:01/18/20 STATUS: DIS IN [facility] [address] [place] [address] END OF REPORT
== END 2020-01-18 15:00 | disposition home or self-care (01) | DRG 439 ==
LOC: D.ER 06:52 → D.EDHOLD 10:33 → D.MS 10:33
PROVIDERS: Family Medicine; Family Medicine Adult Medicine; ADMIT Family Medicine; ATTEND Family Medicine
PROC: 05HY33Z Insertion of Infusion Device into Upper Vein, Percutaneous Approach (ICD-10-PCS; principal; 2020-01-16)
DX: K85.90 Acute pancreatitis without necrosis or infection, unspecified (principal); N17.9 Acute kidney failure, unspecified; E87.1 Hypo-osmolality and hyponatremia; F17.203 Nicotine dependence unspecified, with withdrawal; K59.00 Constipation, unspecified; E11.65 Type 2 diabetes mellitus with hyperglycemia; F03.90 Unspecified dementia, unspecified severity, without behavioral disturbance, psychotic disturbance, mood disturbance, and anxiety; E11.42 Type 2 diabetes mellitus with diabetic polyneuropathy; F32.9 Major depressive disorder, single episode, unspecified; Z95.0 Presence of cardiac pacemaker; K21.9 Gastro-esophageal reflux disease without esophagitis; E11.22 Type 2 diabetes mellitus with diabetic chronic kidney disease; I12.9 Hypertensive chronic kidney disease with stage 1 through stage 4 chronic kidney disease, or unspecified chronic kidney disease; N18.3 Chronic kidney disease, stage 3 (moderate); J44.9 Chronic obstructive pulmonary disease, unspecified; E83.42 Hypomagnesemia